=== PATIENT | male | born 1965 | race Caucasian/White ===

== ENCOUNTER 2016-11-04 08:59 | Day surgery (SDC) | payer OTHER ==
[2016-11-02 15:44] VITALS: BMI 33.0
[~2016-11-04 08:59] MED LIST: LACTATED RINGERS 1,000 ML IV SCH
[2016-11-04 09:15] VITALS: TEMP 97.8
[2016-11-04] MEDS ORDERED: LIDOCAINE 1% 20 ML VIAL (10MG/ML) FOR IV START INTRADERMA ONE (09:16)
[2016-11-04] MEDS ORDERED: LIDOCAINE 1% INJ 10MG/ML (20 ML MDV) ONE (10:33)
[2016-11-04] MEDS ORDERED: PROPOFOL 10 MG/ML 20 ML VIAL IV ONE (10:33)
--- NOTE | 2016-11-04 10:57 | P.GSHP ---
History of Present Illness H&P Date: 11/04/16 Chief Complaint: Screening colonoscopy Is a 51-year-old male referred from Dr. Alex Flores. Patient rents today for screening colonoscopy. He denies history of any GI complaints. - Constitutional Constitutional: Reports as per HPI Past Medical History Past Medical History: COPD, Eye Disorder, Hypertension Additional Past Medical History / Comment(s): CATARACT RT EYE. History of Any Multi-Drug Resistant Organisms: None Reported Past Surgical History: Orthopedic Surgery Additional Past Surgical History / Comment(s): EXC LT CATARACT. ORIF LT HIP REPAIR 1983, METAL REMOVED 1984. Past Anesthesia/Blood Transfusion Reactions: No Reported Reaction Smoking Status: Current every day smoker Past Alcohol Use History: Occasional Additional Past Alcohol Use History / Comment(s): SMOKES 1PPD, SINCE 1986. Past Drug Use History: Marijuana Additional Drug Use History / Comment(s): OCC USE - Past Family History Mother Family Medical History: No Reported History Medications and Allergies Home Medications Medication Instructions Recorded Confirmed Type Budesonide-Formot 160-4.5 Mcg 2 puff INHALATION BID PRN 11/02/16 11/04/16 History [Symbicort 160-4.5 Mcg Inhaler] Quinapril HCl [Accupril] 20 mg PO HS 11/02/16 11/04/16 History Allergies Allergy/AdvReac Type Severity Reaction Status Date / Time No Known Allergies Allergy Verified 11/02/16 15:22 Surgical - Exam Vital Signs Temp Pulse Resp BP Pulse Ox 97.8 F 74 16 148/99 98 11/04/16 09:14 11/04/16 09:14 11/04/16 09:14 11/04/16 09:14 11/04/16 09:14 - General well developed, no distress - Eyes PERRL - ENT normal pinna - Neck no masses - Respiratory normal expansion - Cardiovascular Rhythm: regular - Abdomen Abdomen: soft, non tender Assessment and Plan Plan: 51-year-old male. We'll perform screening colonoscopy.
--- NOTE | 2016-11-04 11:11 | P.OP ---
Date of Procedure: 11/04/16 Preoperative Diagnosis: Screen colonoscopy Postoperative Diagnosis: Montez rectal polyp at 25 cm Procedure(s) Performed: Colonoscopy Implants: Anesthesia: MAC Surgeon: Deshaun Cristobal Pathology: other (Rectal polyp) Condition: stable Disposition: PACU Indications for Procedure: Operative Findings: Description of Procedure: Patient's placed on the endoscopy table lateral position. He received IV sedation. Digital rectal exam was performed which revealed no abnormalities. The prostate was symmetric without nodules. The flexible colonoscope was then placed patient anus and passed throughout the entire colon. The ileocecal valve was visualized. The cecum, ascending and transverse colon appeared normal. The descending; normal. The scope was then brought back the rectum and there was a large peduncular polyp at 25 cm and this was removed with the snare. The major of the and rectum appeared normal. The scope was withdrawn for patient.
[2016-11-04 11:54] VITALS: BP 137/89; PULSE 67; RESP 16
== END 2016-11-04 12:04 | disposition home or self-care (01) ==
LOC: ORWHC2ENDO 08:59
PROVIDERS: ATTEND Surgery
DX: Z12.11 Encounter for screening for malignant neoplasm of colon (principal); D12.8 Benign neoplasm of rectum; I10 Essential (primary) hypertension; J44.9 Chronic obstructive pulmonary disease, unspecified; F12.90 Cannabis use, unspecified, uncomplicated; F17.200 Nicotine dependence, unspecified, uncomplicated; Z79.51 Long term (current) use of inhaled steroids; Z79.899 Other long term (current) drug therapy
CPT/HCPCS: 88305; 45385; J2001; J2704

== ENCOUNTER → 2018-07-05 | Outpatient (CLI) | payer OTHER ==
--- NOTE | 2018-07-05 13:19 | XR ---
EXAMINATION TYPE: XR pelvis AP view DATE OF EXAM: 07/05/2018 COMPARISON: None HISTORY: Pain TECHNIQUE: AP pelvis FINDINGS: Femoral heads articulate with the acetabulum. Degenerative changes are present greater on t he left. Some dysplasia may be present at the left hip. Sacroiliac joints are patent. Symphysis pubis is normal. Normal bowel gas is present. IMPRESSION: 1. Degenerative changes bilateral hips. 2. Some hip dysplasia and deformity of the femoral head may be present on the left.
--- NOTE | 2018-07-05 13:26 | XR ---
EXAMINATION TYPE: XR lumbar spine 2 or 3V DATE OF EXAM: 07/05/2018 COMPARISON: None HISTORY: Pain TECHNIQUE: Three-view lumbar spine FINDINGS: Spondylosis is present. Disc heights are preserved. Vertebral body heights are preserved. A lignment is preserved. There 5 lumbar-type vertebral bodies. The pedicles are intact. IMPRESSION: 1. Spondylosis. 2. No acute osseous abnormality.
== END | disposition home or self-care (01) ==
LOC: RADXRMAIN 12:27
PROVIDERS: ATTEND Family Medicine
DX: M47.816 Spondylosis without myelopathy or radiculopathy, lumbar region (principal); M16.0 Bilateral primary osteoarthritis of hip; Q65.89 Other specified congenital deformities of hip
CPT/HCPCS: 72100; 72170

== ENCOUNTER → 2020-06-03 | Outpatient (CLI) | payer OTHER ==
--- NOTE | 2020-06-03 12:21 | XR ---
EXAMINATION TYPE: XR thoracic spine 3 views DATE OF EXAM: 06/03/2020 COMPARISON: NONE HISTORY: 54-year-old male back pain FINDINGS: 12 rib-bearing thoracic vertebral bodies. All pedicles are visualized. Patient body habitus and some motion limits assessment of the lateral view. Patient's shoulders also limited assessment of the uppe r most thoracic vertebral bodies. Moderate to advanced spondylosis from C5 through C7 on the swimmer' s view. To the extent visualized, there is wbjf-gq-qnutmqsv degenerative disc disease lower thoracic spine. Vertebral body heights appear maintained. Alignment also appears preserved. IMPRESSION: Limitations due to body habitus and motion. No evident malalignment or vertebral compression collapse . Mild to moderate degenerative disc disease lower thoracic spine.
--- NOTE | 2020-06-03 12:22 | XR ---
EXAMINATION TYPE: XR lumbar spine 2 or 3V DATE OF EXAM: 06/03/2020 Comparison: 07/05/2018 Clinical History: 54-year-old male BACK PAIN Findings: 5 lumbar type vertebral bodies. Mild endplate spondylosis is present throughout. More mild to moderat e within the visualized lower thoracic spine. Vertebral bodies heights are preserved and alignment is maintained. Facet arthropathy lower lumbar spine. Impression: Mild degenerative disc disease and endplate spondylosis throughout. Facet arthropathy lower lumbar sp ine. No vertebral compression collapse or malalignment. Changes appear relatively similar to 9.
== END | disposition home or self-care (01) ==
LOC: RADXRMAIN 09:48
PROVIDERS: ATTEND Family Medicine
DX: M51.14 Intervertebral disc disorders with radiculopathy, thoracic region (principal); M51.16 Intervertebral disc disorders with radiculopathy, lumbar region; M47.26 Other spondylosis with radiculopathy, lumbar region
CPT/HCPCS: 72070; 72100

== ENCOUNTER → 2020-07-09 | Outpatient (CLI) | payer OTHER ==
--- NOTE | 2020-07-09 11:29 | CT ---
EXAMINATION TYPE: CT lumbar spine wo con DATE OF EXAM: 07/09/2020 11:01 AM COMPARISON: Lumbar spine x-ray June 03, 2020 HISTORY: low back pain CT DLP: 1072 mGycm Automated exposure control for dose reduction was used. Unenhanced CT of the lumbar spine was performed. Bone and soft tissue window settings are submitted as well as coronal and sagittal reconstructions. There are 5 lumbar type vertebra identified. Lumbar spine shows satisfactory alignment without eviden ce of acute fracture or dislocation. Vertebral body heights and disc space heights are fairly well-ma intained. Dkhu-xz-mmijibvl multilevel anterior spurring. Axial images show the T12-L1 and L1-L2 levels appear within normal limits. Axial images at L2-L3 level show pxvw-xr-nglziuec broad disc bulge and mild facet degenerative change s bilaterally. There is some effacement of the anterior thecal sac. Patent bilateral neural foramina. Axial images at the L3-L4 level show mild facet degenerative changes bilaterally. There is broad-base d posterior disc protrusion mildly effacing anterior thecal sac. Patent bilateral neural foramina. Axial images at the L4-L5 level show mild facet degenerative changes bilaterally. There is focal cent ral disc protrusion. Spinal canal is preserved. The bilateral neural foramina. Axial images at the L5-S1 level show broad disc bulge with focal right paracentral disc protrusion mi ldly effacing anterolateral thecal sac and uxre-oo-gulnrlrd facet degenerative changes bilaterally. T here is fairly moderate left and mild right-sided neural foraminal narrowing noted. Lobulated contour to both kidneys seen. Visualized liver is low dense suggesting fatty infiltration. Localizer shows partial visualization of metallic hardware from bilateral hip surgery. IMPRESSION: Aken-ed-nviakqov multilevel degenerative changes in the mid to lower lumbar spine as deta iled above
== END | disposition home or self-care (01) ==
LOC: RADCTMAIN 10:42
PROVIDERS: ATTEND Orthopaedic Surgery
DX: M47.816 Spondylosis without myelopathy or radiculopathy, lumbar region (principal); M47.817 Spondylosis without myelopathy or radiculopathy, lumbosacral region
CPT/HCPCS: 72131

== ENCOUNTER 2020-08-27 11:38 | Day surgery (SDC) | payer OTHER ==
[2020-08-26 12:30] VITALS: BMI 34.2
[2020-08-27 11:55] VITALS: TEMP 97.8
[2020-08-27] MEDS ORDERED: LIDOCAINE 1% (10MG/ML) FOR IV START INTRADERMA ONE (12:09)
[2020-08-27] MEDS ORDERED: LACTATED RINGERS 1,000 ML IV ONE (12:09)
[2020-08-27] MEDS ORDERED: methylPREDNISolone ACETATE 40 MG/ML 1 ML VIAL ONE (12:52)
[2020-08-27] MEDS ORDERED: ROPIVACAINE 5MG/ML 20ML VIAL ONE (12:52)
[2020-08-27] MEDS ORDERED: MIDAZOLAM 2 MG/2 ML VIAL ONE (12:52)
--- NOTE | 2020-08-27 13:15 | FL ---
Fluoroscopy History: SI Inj 4sec fluoro time. 1 image on PACS
[2020-08-27 13:23] VITALS: BP 111/76; PULSE 79; RESP 16
--- NOTE | 2020-08-27 13:41 | P.PCN ---
Date of Procedure: 08/27/20 Procedure(s) Performed: Procedure= Right sacroiliac joints steroid injection under fluoroscopy guidance (fluoroscopy image stored on file in the radiology Department ) Preoperative diagnosis= 1-sacroiliitis 2-lumbar facet arthropathy Postoperative diagnosis=Same as preop Diagnosis . Complication = none Condition= stable Anesthesia= moderate sedation with intravenous Versed 2 mg . Indication for the procedure= patient complaining of low back pain , examination was positive for severe tenderness over the sacroiliac joints , and patient diagnosed with sacroiliitis, for this reason he was good candidate for sacroiliac joint steroid injection. Description of the procedure= procedure risk and benefits discussed with the patient, including but not limited, risk of infection and bleeding, and ALLERGIC reaction to the medication and not complete pain relief and patient agreed with the preceding patient taken to the operating room, placed in prone position or standard monitors applied to the patient then after induction of anesthesia back prepped with chlorhexidine 3 times , Then under strict sterile technique, first I did the right sacroiliac joint the which was identified under fluoroscopy guidance been local infiltration of the skin and subcu interstitial with lidocaine 1% then 22-gauge Quincke Needle advanced slowly under fluoroscopy and placed in the right sacroiliac joint needle placement confirmed with AP and oblique and lateral view and after appropriate needle placement confirmed and after negative aspiration, or heme , then Ropivacaine 0.5% 4 mL, and 40 mg of Depo-Medrol mixed together and injected in the right sacroiliac joint after negative aspiration patient tolerated the procedure well without any complication.
== END 2020-08-27 13:35 | disposition home or self-care (01) ==
LOC: ORPAIN 11:38
PROVIDERS: ATTEND Specialist
DX: M46.1 Sacroiliitis, not elsewhere classified (principal); M47.896 Other spondylosis, lumbar region; M51.36 Other intervertebral disc degeneration, lumbar region
CPT/HCPCS: J2250; J1030; J2795; G0260; 27096

== ENCOUNTER 2020-10-20 06:55 | Day surgery (SDC) | payer OTHER ==
[2020-10-19 10:05] VITALS: BMI 34.5
[2020-10-20 07:22] VITALS: TEMP 97.4
[2020-10-20] MEDS ORDERED: TRIAMCINOLONE ACETONIDE 40 MG/ML 1 ML VIAL ONE (07:59)
[2020-10-20] MEDS ORDERED: ROPIVACAINE 5MG/ML 20ML VIAL ONE (07:59)
--- NOTE | 2020-10-20 08:04 | P.PCN ---
Date of Procedure: 10/20/20 Surgeon: Liat Florian Pathology: none sent Condition: stable Disposition: PACU Description of Procedure: Preoperative diagnoses= sacroiliac joint dysfunction and sacroiliitis on the ri ght side Postoperative diagnoses= same as preoperative diagnosis. Procedure= sacroiliac joint steroid injection under fluoroscopic guidance. Anesthesia= local only with with lidocaine 1% Estimated blood loss=minimal. Procedure indication= the patient had a history of severe chronic low back pain, diagnosed with sacroiliitis and lumbar sacral facet arthropathy unresponsive to conservative treatment. Procedure description= the patient was seen and identified in the preoperative holding area, risks and benefits and alternative of the procedure and possible complications discussed with the patient, patient signed the consent. an IV was started, and vital signs were monitored and were stable throughout the procedure, patient was placed in the prone position or table and the lumbosacral area was prepped and draped with a sterile fashion, vital signs were closely monitored during the procedure.The sacroiliac joint was identified on the AP view of fluoroscopy then the C-arm was tilted to the contralateral oblique position to superimpose the anterior and posterior joint lines on each other and to have a unified joint line with the target point at the inferior one third of this line. I used 22-gauge 3-1/2 inch Quincke spinal needle for this procedure and after getting into the sacroiliac joint I injected 40 mg of Kenalog +2 MLS of Ropivacaine 0.5%. Patient tolerated the procedure well without any complication, The patient returned to supine position after the back was cleaned and a Band- Aid applied, the patient transported to recovery room in stable condition and he was monitored for 30 minutes before she was discharged home in stable condition . patient will follow up with the pain clinic in a few weeks. A copy of the needle placement was saved to the C-arm machine.
[2020-10-20 08:26] VITALS: PULSE 70; RESP 20
[2020-10-20 08:35] VITALS: BP 125/81
--- NOTE | 2020-10-20 08:36 | FL ---
EXAMINATION TYPE: FL guided pain mgmt statistic DATE OF EXAM: 10/20/2020 CLINICAL HISTORY: Right sacroiliac joint pain. TECHNIQUE: Fluoroscopy. COMPARISON: None. FINDINGS: Fluoroscopic guidance was provided during pain relief procedure performed by Dr. Florian . A total of 2 seconds of fluoroscopic time was utilized during the procedure and 1 spot images are a cquired. Single image acquired shows needle localization inferior sacroiliac joint level . IMPRESSION: As Above.
== END 2020-10-20 08:37 | disposition home or self-care (01) ==
LOC: ORPAIN 06:55
PROVIDERS: ATTEND Anesthesiology
DX: G89.29 Other chronic pain (principal); M53.3 Sacrococcygeal disorders, not elsewhere classified; M46.1 Sacroiliitis, not elsewhere classified; I10 Essential (primary) hypertension; E66.9 Obesity, unspecified; Z68.34 Body mass index [BMI] 34.0-34.9, adult
CPT/HCPCS: J3301; J2795; G0260; 27096

== ENCOUNTER → 2020-11-25 | Outpatient (CLI) | payer OTHER ==
[2020-11-25 10:10] VITALS: BP 171/109; PULSE 77; RESP 16; TEMP 97.7
--- NOTE | 2020-11-25 10:26 | P.PAINCN ---
History of Present Illness - Reason for Consult Consult date: 11/25/20 - History of Present Illness This is a 55-year-old male that is referred by Dr. Gandara for right sacral iliac joint injections. His pain history includes pain in the low back with radiation to the right buttock. Pain does not go down the legs and is described as aching and stabbing. Overall the injections provided near 100% relief and is very happy with them. He is still having pain relief to this day. Patient also denies new-onset weakness, bowel/bladder incontinence, or any other signs or symptoms of cauda equina syndrome. There are no signs of acute intoxication, and no indications of medication diversion or overuse. In addition to above, 13-point review of systems is also negative for chest pain, shortness of breath, changes in vision, changes in hearing, new onset weakness, abdominal pain, diarrhea, extreme fatigue, malaise, fever, skin changes, homicidal or suicidal ideation, or bowel or bladder incontinence. Physical exam: Vital Signs: Reviewed in EMR GENERAL: Well appearing, in no acute distress PSYCH: Mood and affect is appropriate. Awake, alert, and oriented SKIN: Skin color, texture, turgor normal, no rashes or lesions HEENT: Normocephalic, atraumatic. EOM intact CV: No pedal edema RESP: Respirations are unlabored, no audible wheezing GI: Abdomen non-distended MUSCULOSKELETAL: Bilateral upper and lower extremity strength is normal and symmetric. No atrophy or tone abnormalities are noted. Neck: No pain to palpation over the cervical paraspinous muscles. Spurling negative, Axial Loading Test negative, Nina's sign negative. No pain with neck flexion, extension, or lateral flexion. No obvious deformity or signs of trauma. Normal cervical lordotic curve and normal cervical spine range of motion Lumbar spine: Straight leg raising in the sitting position is negative for radicular pain. No pain to palpation over the lumbar spine and paraspinous muscles. Negative for pain with facet loading and back extension/rotation. Normal range of motion without pain reproduction Buttocks: No pain to palpation over the PSIS, Yuval test is negative Extremities: Peripheral joint ROM is full and pain free without obvious instability or laxity in all four extremities. No edema or skin discolorations noted. Gait: Gait is normal NEUR: Bilateral upper and lower extremity coordination and muscle stretch reflexes are physiologic and symmetric. Negative clonus. No loss of sensation is noted. Cranial nerves are grossly intact. Assessment: 1. Right sacroiliitis 2. 3. Plan: -I told Patient he can follow-up as needed for repeat procedures as he had greater than 50% relief for several weeks with a significant increase in his functionality. I did discuss possible surgical intervention with Dr. Gandara if the patient would like to go that route, patient will see how he does over the next few weeks and months and make a decision then. At this time he would just like to repeat the procedures as needed. I spent 27 minutes on patient care today. The time was used to review medical records including relevant urine studies and prescription history (MAPs), review of the available imaging, evaluation and examination the patient, coordination of care at the medical staff and if applicable referring physicians, as well as creation of the medical record. Past Medical History Past Medical History: COPD, Eye Disorder, Hypertension, Musculoskeletal Disorder Additional Past Medical History / Comment(s): lumbar back pain History of Any Multi-Drug Resistant Organisms: None Reported Past Surgical History: Joint Replacement, Orthopedic Surgery Additional Past Surgical History / Comment(s): cataracts removed, ORIF LT HIP REPAIR 1983, METAL REMOVED 1984, bc hip replacements, colonoscopy Past Anesthesia/Blood Transfusion Reactions: No Reported Reaction Smoking Status: Current every day smoker - Past Family History Mother Family Medical History: No Reported History Medications and Allergies Home Medications Medication Instructions Recorded Confirmed Type Budesonide-Formot 160-4.5 Mcg 2 puff INHALATION BID PRN 11/02/16 11/23/20 History [Symbicort 160-4.5 Mcg Inhaler] Quinapril HCl [Accupril] 20 mg PO DAILY 11/02/16 11/23/20 History Allergies Allergy/AdvReac Type Severity Reaction Status Date / Time No Known Allergies Allergy Verified 11/23/20 14:28 Physical Exam Vitals: Vital Signs Temp Pulse Resp BP Pulse Ox 11/25/20 10:07 97.7 F 77 16 171/109 99 PQRS Measure Charge Sheet PQRS Narrative: Smoking Status Current every day smoker Blood Pressure 171/109 Pain Intensity [None] 2 Scale Used Numeric (1 - 10) Hx Alcohol Use (MH) Yes: occasional Home Medications: Ambulatory Orders Budesonide-Formot 160-4.5 Mcg [Symbicort 160-4.5 Mcg Inhaler] 2 puff INHALATION BID PRN 11/02/16 Quinapril HCl [Accupril] 20 mg PO DAILY 11/02/16
== END ==
LOC: PNWHC3 09:58
PROVIDERS: ATTEND Anesthesiology
DX: M46.1 Sacroiliitis, not elsewhere classified (principal); J44.9 Chronic obstructive pulmonary disease, unspecified; I10 Essential (primary) hypertension; F17.200 Nicotine dependence, unspecified, uncomplicated; Z79.51 Long term (current) use of inhaled steroids; Z79.899 Other long term (current) drug therapy
CPT/HCPCS: 99211

== ENCOUNTER → 2021-05-19 | Outpatient (CLI) | payer OTHER ==
[2021-05-19 11:22] VITALS: BP 145/90; PULSE 89; RESP 18; TEMP 98.2
--- NOTE | 2021-05-19 11:40 | P.PAINPG ---
Subjective Progress Note Date: 05/19/21 Principal diagnosis: Low back pain Mr. Garcia is a 55 -year-old pleasant male came to the [facility] pain clinic for follow-up visit . Patient has ongoing pain for many years. Patient had right-sided sacroiliac joint injection 2 which helped tremendous pain relief. He had more than 80% pain relief for more than 2 months duration from the previous injection. Patient describes pain is aching, throbbing, constant type of pain. Pain is not radiating below the right knee.. Patient rated pain levels are 4-5 out of 10 in severity. With the help of medications pain levels are 4 out of 10 in severity. Activities making pain worse. Medications, resting, interventional procedures, exercises helping in relieving patient's pain. Patient pain some days better than others. Overall activities decreased secondary to pain. Because of the pain sometimes patient is feeling lack of sleep, interest, and energy. Denied any side effects with the medications. Denied any bowel or bladder problems at this time. Patient is not using any walking aids. Patient denies any suicidal or homicidal ideations intent or plan. Patient denies any auditory or visual hallucinations. Patient denied any red flag symptoms related to pain. Objective - Vital Signs Vital signs: Intake & Output 05/18/21 05/19/21 05/19/21 18:59 06:59 18:59 Weight 117.934 kg - Exam General: Well-developed, well-nourished, no acute distress HEENT: Normocephalic, and atraumatic Neck: Supple, no neck swelling Psychiatric: Appropriate mood, and affect GUM MAKER: No focal neurological deficits Musculoskeletal: Upper extremity: Normal strength, and range of motion. Sensation grossly intact Lower extremity: Normal strength, and decreased range of motion secondary to pain Lumbar spine: Paravertebral tenderness: Negative Lumbar facet load test : Negative Sacroiliac joint tenderness: Positive more worse on the right side Thigh thrust test: Positive more worse on the right side SI joint compression test: Positive more worse on the right side Fabere test: Positive more on right side - Constitutional Constitutional Comment(s): 13 point review of Systems , and symptoms negative for chest pain, shortness of breath, change in vision, change in weakness, abdominal pain, diarrhea, extreme fatigue, malaise, fever, skin changes, suicidal/homicidal ideas, bowel incontinence or bladder incontinence. Assessment and Plan Assessment: Sacroiliac joint dysfunction right worse than the left Myofascial pain syndrome Plan: #1 Diagnoses, prognosis, and multiple treatment options including but not limited to physical therapy, interventional therapy, adjunct medication therapy, narcotic medication, and surgical options were discussed with the patient. And all questions were answered to the patient's satisfaction. #2 treatment plan agreement : Patient was thoroughly discussed regarding the treatment options, alternatives, and importance of exercises as tolerated. Patient clearly understood. #3 Patient was counseled on importance of regular exercise. Including ilana chi, aerobic exercises as tolerated. Which helps for chronic pain, and overall well- being. Patient also counseled regarding importance of weight control rolling chronic pain, and overall other health issues. By altering diet habits, minimizing sugar intake, and processed foods helps in minimizing Inflammation. Also discussed with the patient regarding intermittent fasting. Patient counseled regarding smoking associated with chronic pain, worsening inflammation, and smoking effects on liver, and medication metabolism. And encouraged to stop smoking. #4 investigations: MAPS- reviewed , urine drug test- reviewed #5 diagnostic tests: None #6 consultation : None # 7 interventional procedures: Right side SI joint injection . Procedure, complications, alternatives discussed with the patient. #8 medications none from the pain clinic # 9TENS unit's, and percussion massage device #10 disposition: scheduled to follow up with pain clinic in 4 weeks duration. Time with Patient: Less than 30 PQRS Measure Charge Sheet Measure #130: Documentation of Current Meds in Medical Chart: Patient's medica tions documented in chart Measure #226: Tobacco Use: Screen & Cessation Intervention: Pt screened for tobacco use AND intervention given Measure #111: Pneumonia Vaccination: Pneumococcal vaccine NOT administered or previously given Measure #47: Advance Care Plan: Advance care planning discussed & documented, pt chose/unable to give Measure #412: Opioid Treatment Agreement: No documentation of signed opioid treatment agreement Measure #408: Opioid Therapy Follow-up Evaluation: Patient had NO f/u eval minimum every 3 months during opioid therapy Measure #317: Preventitive Care & Scrn High Bld Press & F/U: Normal blood pressure, f/u not required Measure #128: Body Mass Index (BMI) Screening & Follow-up: BMI documented ABOVE normal parameters - f/u documented Measure #131: Pain Assessment & Follow-up: Pain positive & plan documented Measure #431: Unhealthy Alcohol Use Preventative Care & Scrn: Patient not identified as an unhealthy alcohol user PQRS Narrative: Smoking Status Current every day smoker Pain Intensity [Right Lower 7 Back] Hx Alcohol Use (MH) Yes: occasional Home Medications: Ambulatory Orders Budesonide-Formot 160-4.5 Mcg [Symbicort 160-4.5 Mcg Inhaler] 2 puff INHALATION BID PRN 11/02/16 Quinapril HCl [Accupril] 20 mg PO DAILY 11/02/16 Ibuprofen [Motrin] 800 mg PO DIRECTED PRN 05/18/21 Controlled Substance Measures - Controlled Substance Measures Is patient prescribed a controlled substance at discharge?: No
== END ==
LOC: PNWHC3 11:02
DX: M53.3 Sacrococcygeal disorders, not elsewhere classified (principal); M79.18 Myalgia, other site; F17.200 Nicotine dependence, unspecified, uncomplicated
CPT/HCPCS: 99211

== ENCOUNTER 2021-06-24 12:12 | Day surgery (SDC) | payer OTHER ==
[2021-06-18 14:27] VITALS: BMI 34.2
[2021-06-24 13:13] VITALS: TEMP 98.6
[2021-06-24] MEDS ORDERED: methylPREDNISolone ACETATE 40 MG/ML 1 ML VIAL ONE (13:37)
[2021-06-24] MEDS ORDERED: ROPIVACAINE 5MG/ML 20ML VIAL ONE (13:37)
--- NOTE | 2021-06-24 13:52 | P.PCN ---
Date of Procedure: 06/24/21 Procedure(s) Performed: Procedure(s) Performed: Procedure= Right sacroiliac joints steroid injection under fluoroscopy guidance (fluoroscopy image stored on file in the radiology Department ) Preoperative diagnosis= 1-right sacroiliitis 2-lumbar spondylosis with facet arthropathy Postoperative diagnosis=Same as preop Diagnosis . Complication = none Condition= stable Anesthesia= local anestesia with Ropivacaine 0.5% 3 ml . Indication for the procedure= patient complaining of low back pain , examination was positive for severe tenderness over the sacroiliac joints , and patient diagnosed with sacroiliitis, for this reason he was good candidate for sacroiliac joint steroid injection. Description of the procedure= procedure risk and benefits discussed with the patient, including but not limited, risk of infection and bleeding, and ALLERGIC reaction to the medication and not complete pain relief and patient agreed with the preceding patient taken to the operating room, placed in prone position or standard monitors applied to the patient then back prepped with chlorhexidine 3 times , Then under strict sterile technique, the right sacroiliac joint , was identified under fluoroscopy guidance been local infiltration of the skin and subcu interstitial with lidocaine 1% then 22-gauge Quincke Needle advanced slowly under fluoroscopy and placed in the right sacroiliac joint needle placement confirmed with AP and oblique and lateral view and after appropriate needle placement confirmed and after negative aspiration, or heme , then Ropivacaine 0.5% 4 mL, and 40 mg of Depo-Medrol mixed together and injected in the right sacroiliac joint after negative aspiration patient tolerated the procedure well without any complication.
--- NOTE | 2021-06-24 14:00 | FL ---
Fluoroscopy INDICATION: Pain FINDINGS: Fluoroscopy time: 7 seconds. Images obtained: 2. IMPRESSIONS: 1. Documentation of fluoroscopy.
[2021-06-24 14:09] VITALS: BP 125/709; PULSE 91; RESP 91
== END 2021-06-24 14:30 | disposition home or self-care (01) ==
LOC: ORPAIN 12:12
PROVIDERS: ATTEND Specialist
DX: M46.1 Sacroiliitis, not elsewhere classified (principal); M51.36 Other intervertebral disc degeneration, lumbar region; M43.06 Spondylolysis, lumbar region
CPT/HCPCS: G0260; J1030; J2795; 27096

== ENCOUNTER → 2021-08-16 | Outpatient (CLI) | payer OTHER ==
[2021-08-16 08:35] VITALS: BP 126/80; PULSE 80; RESP 18; TEMP 98.2
--- NOTE | 2021-08-16 08:43 | P.PN ---
Subjective Progress Note Date: 08/16/21 Principal diagnosis: A 56 yr old male with a history of severe and chronic low back pain secondary to lumbar degenerative disc diseases and lumbar spondylosis with facet arthropathy presents today for evaluation status post right SI joint injection. Patient states he experienced 80% pain relief for several weeks status post procedure. Pain level is currently at 8 out of 10 in intensity, dull achy in the lower aspects of the lumbar spine with radiation to the back of the right hip and buttock. Pain escalates as high as 10 out of 10 with certain activities. Pain is provoked by bending and crouching when he is doing a home repairs such as adjusting the garbage disposal and shutting off the water valve to the toilet, walking for periods of 20 minutes or more or standing for periods of 40 minutes or. Pain is alleviated with medications, injections, heat, use of a heat ing pad, stretching paced activities at home, repositioning, reclining and rest. Interventional pain procedures completed include right SI joint injection #1 Patient is currently on Motrin 800 mg Patient denies any side effects of the medication(s), denies excessive drowsiness or sleepiness, denies suicidal ideation and reports that the current pain medication is helping to control the pain and improve activities of daily living. Patient denies any motor or sensory deficits. Patient denies any fever or night sweats, denies any change in the bowel movements or urination. Physical Examination: -Constitutional: Cooperative. Not in acute distress . -HEENT: Neck is supple. No lymphadenopathy. No thyromegaly. Normal thyroid size. Eyes: No ptosis , no icterus, no photophobia. ENT: No auditory deficits. Normal oropharynx. No Thrush. - Respiratory: Chest clear to auscultations bilaterally. No wheezing. No rhonchi. - Cardiovascular: Regular rate and rhythm. S1 / S2 , no S3 , no S4. - Gastrointestinal: Abdomen soft no tenderness. Bowel sounds positive in all four quadrants. No organomegaly. - Genitourinary: Deferred. - Neurologic: Cranial nerve II to XII intact. No focal neurological deficits. - Psychatric: Alert & oriented x 3. Matching mood & appropriate affect. Judgment and insight intact. - Lymphatic: No Lymphadenopathy. - Musculoskeletal: Cervical spine: Muscle bulk/ tone/ strength in the bilateral upper extremities normal. Facet loading test cervical area positive. Lumbar spine: Motor bulk/ tone/ strength lower extremities , thigh and legs : 5/5 Deep tendon reflexes : Normal Knee Jerk. Normal Ankle Jerk . Vertebral body tenderness to palpation over Lumbar Facet Loading Test positive Straight Leg Raise: positive at 30 degrees right side/ left side Gaenslen's Test positive Sacral spine : Severe tenderness over the Sacroiliac joint: right side / left side Range of motion: Flexion of the lumbar spine <60 degrees Range of motion: Extension of the lumbar spine <20 degrees Gaenslen's Test positive Yuval test: positive right side / left side Assessment and plan: Chronic low back pain secondary to lumbar degenerative disc disease , lumbar spondylosis with facet arthropathy without myelopathy Recommendation of right SI joint injection #2. Risks, benefits of procedure discussed and patient verbalized understanding. Denies anticoagulants use. Denies medical history of diabetes mellitus. Chronic and current use of high-risk medication (Opioids). The patient was counseled about risk of opioid use, psychological risk associated with opioids and was orally counseled to not overuse , divert or sell medications. Pt is to store medication in a safe location. The patient is counseled against driving while using narcotic medications and also not to use alcohol or any illicit recreational drugs. Patient verbalized understanding that the lack of compliance will result in failure to renew narcotic prescription(s) as well as possible discharge from the clinic Diagnoses, prognosis and treatment options including but not limited to physical therapy, surgical interventions, interventional therapies and medication management including narcotics and adjuvant medication were discussed. All patient questions answered MAPS reviewed and it was appropriate. UDS to be collected at next visit. Prescription for [place] 5/325 #45 with 1 refill. I have spent 31 minutes on patient care today. Dr Hall was available by phone for the evaluation of this patient. The time was used to review the medical records including relevant urine studies and Prescription history (MAPs), review of the available imaging, evaluation and examination of the patient, coordination of care with the medical staff and if applicable referring physicians, as well as creation of the medical record Objective - Vital Signs Vital signs: Vital Signs Temp 98.2 F 08/16/21 08:30 Pulse 80 08/16/21 08:30 Resp 18 08/16/21 08:30 BP 126/80 08/16/21 08:30 Pulse Ox 95 08/16/21 08:30 Intake & Output 08/15/21 08/16/21 08/16/21 18:59 06:59 18:59 Weight 117.934 kg PQRS Measure Charge Sheet Mode of Arrival: Ambulatory - Pain Location Right Lower Back Non-Pharmacological Interventions: Heat, Home Exercise, Position/Reposition, Stretching Pharmacological Interventions: PRN Medication PQRS Narrative: Smoking Status Current every day smoker Narcotic Agreement Date Signed 08/16/21 Blood Pressure 126/80 Pain Intensity [Right Lower 8 Back] Scale Used Numeric (1 - 10) Hx Alcohol Use (MH) Yes: occasional Home Medications: Ambulatory Orders Budesonide-Formot 160-4.5 Mcg [Symbicort 160-4.5 Mcg Inhaler] 2 puff INHALATION BID PRN 11/02/16 Quinapril HCl [Accupril] 20 mg PO DAILY 11/02/16 Ibuprofen [Motrin] 800 mg PO DIRECTED PRN 05/18/21 HYDROcodone/APAP 5-325MG [[place] 5-325] 1 tab PO Q12HR PRN 30 Days #45 tab 08/16/21 HYDROcodone/APAP 5-325MG [[place] 5-325] 1 tab PO Q12HR PRN 30 Days #45 tab 08/16/21
== END ==
LOC: PNWHC3 08:12
PROVIDERS: ATTEND Physician Assistant Medical
DX: M51.36 Other intervertebral disc degeneration, lumbar region (principal); M47.816 Spondylosis without myelopathy or radiculopathy, lumbar region; G89.29 Other chronic pain; Z79.891 Long term (current) use of opiate analgesic; F17.200 Nicotine dependence, unspecified, uncomplicated
CPT/HCPCS: 99211

== ENCOUNTER → 2021-10-11 | Outpatient (CLI) | payer OTHER ==
--- NOTE | 2021-10-11 08:54 | P.PN ---
Subjective Progress Note Date: 10/11/21 Principal diagnosis: A 56 yr old male with a history of severe and chronic low back pain secondary to lumbar degenerative disc diseases and lumbar spondylosis with facet arthropathy presents today for medication refills. He is also approved and pending scheduling a right SI joint injection. Pain level is a 3 out of 10 in intensity, constant, achy in the lower aspects of his lumbar spine/tailbone region with pain provoked with bending and standing. Pain is alleviated with medications ([place] 5/325 mg), heat and laying supine. Patient is currently on [place] 5/325 #45 Patient denies any side effects of the medication(s), denies excessive drowsiness or sleepiness, denies suicidal ideation and reports that the current pain medication is helping to control the pain and improve activities of daily living. Patient denies any motor or sensory deficits. Patient denies any fever or night sweats, denies any change in the bowel movements or urination. Physical Examination: -Constitutional: Cooperative. Not in acute distress . -HEENT: Neck is supple. No lymphadenopathy. No thyromegaly. Normal thyroid size. Eyes: No ptosis , no icterus, no photophobia. ENT: No auditory deficits. Normal oropharynx. No Thrush. - Respiratory: Chest clear to auscultations bilaterally. No wheezing. No rhonchi. - Cardiovascular: Regular rate and rhythm. S1 / S2 , no S3 , no S4. - Gastrointestinal: Abdomen soft no tenderness. Bowel sounds positive in all four quadrants. No organomegaly. - Genitourinary: Deferred. - Neurologic: Cranial nerve II to XII intact. No focal neurological deficits. - Psychatric: Alert & oriented x 3. Matching mood & appropriate affect. Judgment and insight intact. - Lymphatic: No Lymphadenopathy. - Musculoskeletal: Cervical spine: Muscle bulk/ tone/ strength in the bilateral upper extremities normal. Facet loading test cervical area positive. Lumbar spine: Motor bulk/ tone/ strength lower extremities , thigh and legs : 5/5 Deep tendon reflexes : Normal Knee Jerk. Normal Ankle Jerk . Vertebral body tenderness to palpation over Lumbar Facet Loading Test positive Straight Leg Raise: positive at 30 degrees right side/ left side Gaenslen's Test positive Sacral spine : Severe tenderness over the Sacroiliac joint: right side / left side Range of motion: Flexion of the lumbar spine <60 degrees Range of motion: Extension of the lumbar spine <20 degrees Gaenslen's Test positive Yuval test: positive right side / left side Assessment and plan: Chronic low back pain secondary to lumbar degenerative disc disease , lumbar spondylosis with facet arthropathy without myelopathy Recommendation of right SI joint injection. Risks, benefits of procedure discussed in patient accounts understanding. Denies anticoagulant use or medical history of diabetes. Chronic and current use of high-risk medication (Opioids). The patient was counseled about risk of opioid use, psychological risk associated with opioids and was orally counseled to not overuse , divert or sell medications. Pt is to store medication in a safe location. The patient is counseled against driving while using narcotic medications and also not to use alcohol or any illicit recreational drugs. Patient verbalized understanding that the lack of compliance will result in failure to renew narcotic prescription(s) as well as possible discharge from the clinic Diagnoses, prognosis and treatment options including but not limited to physical therapy, surgical interventions, interventional therapies and medication management including narcotics and adjuvant medication were discussed. All patient questions answered MAPS reviewed and it was appropriate. Will collect UDS at next visit in December, Prescription refill for [place] 5/325mg #45 w 1 refill I have spent 31 minutes on patient care today. Dr Hall was available by phone for the evaluation of this patient. The time was used to review the medical records including relevant urine studies and Prescription history (MAPs), review of the available imaging, evaluation and examination of the patient, coordination of care with the medical staff and if applicable referring physicians, as well as creation of the medical record Objective - Vital Signs Vital signs: Intake & Output 10/10/21 10/11/21 10/11/21 18:59 06:59 18:59 Weight 124.738 kg PQRS Measure Charge Sheet Mode of Arrival: Ambulatory - Pain Location Lower Back Non-Pharmacological Interventions: Heat, Position/Reposition Pharmacological Interventions: Medication PQRS Narrative: Smoking Status Current every day smoker Narcotic Agreement Date Signed 08/16/21 Pain Intensity [Lower Back] 7 Scale Used Numeric (1 - 10) Hx Alcohol Use (MH) Yes: occasional Home Medications: Ambulatory Orders Budesonide-Formot 160-4.5 Mcg [Symbicort 160-4.5 Mcg Inhaler] 2 puff INHALATION BID PRN 11/02/16 Quinapril HCl [Accupril] 20 mg PO DAILY 11/02/16 Ibuprofen [Motrin] 800 mg PO DIRECTED PRN 05/18/21 HYDROcodone/APAP 5-325MG [[place] 5-325] 1 tab PO Q12HR PRN 30 Days #45 tab 10/11/21 HYDROcodone/APAP 5-325MG [[place] 5-325] 1 tab PO Q12HR PRN 30 Days #45 tab 10/11/21
[2021-10-11 09:03] VITALS: BP 151/93; PULSE 85; RESP 16; TEMP 97.8
== END ==
LOC: PNWHC3 08:17
PROVIDERS: ATTEND Specialist
DX: M51.36 Other intervertebral disc degeneration, lumbar region (principal); M47.816 Spondylosis without myelopathy or radiculopathy, lumbar region; G89.29 Other chronic pain; Z79.891 Long term (current) use of opiate analgesic; F17.200 Nicotine dependence, unspecified, uncomplicated
CPT/HCPCS: 99211

== ENCOUNTER 2021-10-26 10:48 | Day surgery (SDC) | payer OTHER ==
[2021-10-25 09:42] VITALS: BMI 36.3
[2021-10-26 11:38] VITALS: TEMP 98
[2021-10-26] MEDS ORDERED: ROPIVACAINE 5MG/ML 20ML VIAL ONE (12:00)
[2021-10-26] MEDS ORDERED: IOPAMIDOL M200 10 ML VIAL ONE (12:00)
--- NOTE | 2021-10-26 12:18 | P.PCN ---
Date of Procedure: 10/26/21 Description of Procedure: Procedure: Sacroiliac joint injection right Preoperative diagnosis: Sacroiliitis Postoperative diagnosis: Sacroiliitis Imaging: Fluoroscopy was used, images where saved to the medical record Complications: none Anesthesia: 1% lidocaine 5cc Description of the procedure: procedure risk and benefits discussed with the patient, including but not limited, risk of infection and bleeding, and allergic reaction to the medication and incomplete pain relief. Patient agreed and signed consent. Patient was taken to the room and placed in a prone position. Chlorhexidine was used to cleanse the skin. Under sterile conditions patient skin was anesthetized 1% lidocaine. Subcutaneous tissues were also anesthetized with a total 5 mL of 1% lidocaine. After that, a 22-gauge spinal needle was advanced through the anesthetized location under fluoroscopic guidance. Needle was advanced into the inferior portion of the sacroiliac joint. IV contrast was used to confirm spread within the joint. After adequate spread was achieved, 2.5 ML's of 0.5% ropivacaine with 40 mg of depomedrol was injected into the joint (steroid split between both sides if bilateral). Patient tolerated the procedure well. Sent to the recovery room in stable condition. Patient will follow up as directed.
[2021-10-26 12:19] VITALS: RESP 20
[2021-10-26 12:32] VITALS: BP 114/73; PULSE 84
--- NOTE | 2021-10-26 14:01 | FL ---
EXAMINATION TYPE: FL guided pain mgmt statistic DATE OF EXAM: 10/26/2021 CLINICAL HISTORY: Right sacroiliac joint pain. TECHNIQUE: Fluoroscopy. COMPARISON: None. FINDINGS: Fluoroscopic guidance was provided during pain relief procedure performed by Dr. Boyce . A total of 4 seconds of fluoroscopic time was utilized during the procedure and 1 spot images are a cquired. Single limits acquired shows needle localization at inferior right sacroiliac joint level. IMPRESSION: As Above.
== END 2021-10-26 12:33 ==
LOC: ORPAIN 10:48
PROVIDERS: ATTEND Hospitalist
DX: M46.1 Sacroiliitis, not elsewhere classified (principal)
CPT/HCPCS: 27096; Q9966; J2795; G0260

== ENCOUNTER 2022-05-21 14:11 | Emergency (ER) | payer OTHER ==
[2022-05-21 14:24] VITALS: TEMP 97.7
[2022-05-21] MEDS ORDERED: AMPICILLIN-SULBACTAM 3 GM in SODIUM CHLORIDE 0.9% 100 ML IVPB STA (15:11)
[2022-05-21] MEDS ORDERED: MORPHINE SULFATE 4 MG/ML SYRINGE IVP STA (15:12)
[2022-05-21 16:13] LABS: Basophils # (A) 0.1 k/uL (0-0.2); Basophils % (A) 1 %; Eosinophils # (A) 0.2 k/uL (0-0.7); Eosinophils % (A) 1 %; HCT 48.9 % (39.0-53.0); HGB 16.5 gm/dL (13.0-17.5); Lymphocytes # (A) 1.9 k/uL (1.0-4.8); Lymphocytes % (A) 13 %; MCH 31.8 pg (25.0-35.0); MCHC 33.6 g/dL (31.0-37.0); MCV 94.7 fL (80.0-100.0); Monocytes # (A) 0.8 k/uL (0-1.0); Monocytes % (A) 5 %; Neutrophils # (A) 11.7 k/uL (1.3-7.7); Neutrophils % (A) 79 %; Platelet Count 293 k/uL (150-450); RBC 5.17 m/uL (4.30-5.90); RDW 12.1 % (11.5-15.5); WBC 14.8 k/uL (3.8-10.6)
--- NOTE | 2022-05-21 16:13 | ED ---
Animal Bite HPI - General Source: patient Mode of arrival: ambulatory Limitations: no limitations <Ulysses Guardado - Last Filed: 05/21/22 17:27> <Gus Becker - Last Filed: 05/21/22 17:41> - General Chief Complaint: Animal Bite Stated Complaint: cat bite - rt hand Time Seen by Provider: 05/21/22 15:01 - History of Present Illness Initial Comments: Patient is a 56-year-old male history of COPD and hypertension presenting with chief complaint of right hand pain and swelling. Patient was petting a cat in his neighborhood yesterday when it bit him. Patient states that pain has been increasing over the last 24 hours. The cat bit him on the wrist, there is redness and swelling localized to the area as well as distal to the area. No fever or chills. No nausea or vomiting. No chest pain or difficulty breathing. No palpitations or weakness. No numbness, tingling, weakness. (Ulysses Guardado) - Related Data Home Medications Medication Instructions Recorded Confirmed Budesonide-Formot 160-4.5 Mcg 2 puff INHALATION BID PRN 11/02/16 10/25/21 [Symbicort 160-4.5 Mcg Inhaler] Ibuprofen [Motrin] 800 mg PO DIRECTED PRN 05/18/21 10/25/21 Benazepril HCl 1 tab PO DAILY 10/11/21 10/25/21 Previous Rx's Medication Instructions Recorded HYDROcodone/APAP 5-325MG [[place] 1 tab PO Q12HR PRN 30 Days #45 tab 10/11/21 5-325] Amoxic-Pot Clav 875-125Mg 1 tab PO Q12HR 1 Days #14 tab 05/21/22 [Augmentin 875-125] HYDROcodone/APAP 5-325MG [[place] 1 tab PO Q4HR PRN 3 Days #18 tab 05/21/22 5-325] Allergies Allergy/AdvReac Type Severity Reaction Status Date / Time No Known Allergies Allergy Verified 05/21/22 14:24 Review of Systems ROS Other: All systems not noted in ROS Statement are negative. <Ulysses Guardado - Last Filed: 05/21/22 17:27> ROS Other: All systems not noted in ROS Statement are negative. <Gus Becker - Last Filed: 05/21/22 17:41> ROS Statement: Those systems with pertinent positive or pertinent negative responses have been documented in the HPI. Past Medical History Past Medical History: COPD, Eye Disorder, Hypertension, Musculoskeletal Disorder Additional Past Medical History / Comment(s): lumbar back pain History of Any Multi-Drug Resistant Organisms: None Reported Past Surgical History: Joint Replacement, Orthopedic Surgery Additional Past Surgical History / Comment(s): cataracts removed, ORIF LT HIP REPAIR 1983, METAL REMOVED 1984, bc hip replacements, colonoscopy, PAIN CLINIC PROCEDURES Past Anesthesia/Blood Transfusion Reactions: No Reported Reaction Past Psychological History: No Psychological Hx Reported Smoking Status: Current every day smoker Past Alcohol Use History: Occasional Past Drug Use History: Marijuana - Past Family History Mother Family Medical History: No Reported History <Ulysses Guardado - Last Filed: 05/21/22 17:27> General Exam Limitations: no limitations General appearance: alert, in no apparent distress Head exam: Present: atraumatic, normocephalic, normal inspection Eye exam: Present: normal appearance Neck exam: Present: normal inspection Respiratory exam: Present: normal lung sounds bilaterally. Absent: respiratory distress, wheezes, rales, rhonchi, stridor Cardiovascular Exam: Present: regular rate, normal rhythm, normal heart sounds. Absent: systolic murmur, diastolic murmur, rubs, gallop, clicks Extremities exam: Present: tenderness. Absent: full ROM Right Forearm Wrist exam: Present: tenderness, swelling, erythema. Absent: full ROM Vascular: Present: radial pulse (2+). Absent: vascular compromise Neurological exam: Present: alert, oriented X3, CN II-XII intact Psychiatric exam: Present: normal affect, normal mood Skin exam: Present: erythema (over cat bite on R wrist) <Ulysses Guardado - Last Filed: 05/21/22 17:27> Course <Ulysses Guardado - Last Filed: 05/21/22 17:27> Vital Signs 05/21/22 14:20 Temperature 97.7 F Pulse Rate 73 Respiratory 16 Rate Blood Pressure 139/85 O2 Sat by Pulse 97 Oximetry - Reevaluation(s) Reevaluation #1: Patient was signed out to my attending Dr. Becker for further management and disposition 05/21/22 17:27 (Ulysses Guardado) Medical Decision Making - Lab Data Result diagrams: 05/21/22 15:50 05/21/22 15:50 <Ulysses Guardado - Last Filed: 05/21/22 17:27> - Lab Data Result diagrams: 05/21/22 15:50 05/21/22 15:50 <Gus Becker - Last Filed: 05/21/22 17:41> - Medical Decision Making Patient is a 56-year-old male presenting with chief complaint of cat bite to the right wrist and hand. On physical examination there is exquisite tenderness and some swelling and redness noted. Patient has full sensation and radial pulses 2+. WBC 14.8. CRP 1.9. X-ray of the wrist and hand show soft tissue swelling without acute osseous process. Patient is given Unasyn and pain medication. (Ulysses Guardado) - Lab Data Lab Results 05/21/22 05/21/22 05/21/22 Range/Units 15:50 15:50 15:50 WBC 14.8 H (3.8-10.6) k/uL RBC 5.17 (4.30-5.90) m/uL Hgb 16.5 (13.0-17.5) gm/dL Hct 48.9 (39.0-53.0) % MCV 94.7 (80.0-100.0) fL MCH 31.8 (25.0-35.0) pg MCHC 33.6 (31.0-37.0) g/dL RDW 12.1 (11.5-15.5) % Plt Count 293 (150-450) k/uL MPV 8.0 Neutrophils % 79 % Lymphocytes % 13 % Monocytes % 5 % Eosinophils % 1 % Basophils % 1 % Neutrophils # 11.7 H (1.3-7.7) k/uL Lymphocytes # 1.9 (1.0-4.8) k/uL Monocytes # 0.8 (0-1.0) k/uL Eosinophils # 0.2 (0-0.7) k/uL Basophils # 0.1 (0-0.2) k/uL Sodium 134 L (137-145) mmol/L Potassium 4.5 (3.5-5.1) mmol/L Chloride 100 (98-107) mmol/L Carbon Dioxide 25 (22-30) mmol/L Anion Gap 9 mmol/L BUN 15 (9-20) mg/dL Creatinine 0.73 (0.66-1.25) mg/dL Est GFR (CKD-EPI)AfAm >90 (>60 ml/min/1.73 sqM) Est GFR (CKD-EPI)NonAf >90 (>60 ml/min/1.73 sqM) Glucose 102 H (74-99) mg/dL Plasma Lactic Acid Marlon 1.3 (0.7-2.0) mmol/L Calcium 9.3 (8.4-10.2) mg/dL Total Bilirubin 0.7 (0.2-1.3) mg/dL AST 28 (17-59) U/L ALT 44 (4-49) U/L Alkaline Phosphatase 95 (38-126) U/L C-Reactive Protein 1.9 H (<1.0) mg/dL Total Protein 8.0 (6.3-8.2) g/dL Albumin 4.8 (3.5-5.0) g/dL Disposition <Ulysses Guardado - Last Filed: 05/21/22 17:27> Is patient prescribed a controlled substance at d/c from ED?: Yes When asked, does pt state using other controlled substances?: No If prescribed controlled substance>3 days was MAPS reviewed?: Prescribed <3 Days If opioid is for acute pain is fill amount 7 days or less?: Yes If Rx opioid, was Start Talking consent form obtained?: Yes <Gus Becker - Last Filed: 05/21/22 17:41> Clinical Impression: Cat bite Disposition: HOME SELF-CARE Condition: Good Instructions (If sedation given, give patient instructions): Animal Bite (ED) Prescriptions: Amoxic-Pot Clav 875-125Mg [Augmentin 875-125] 1 tab PO Q12HR 1 Days #14 tab HYDROcodone/APAP 5-325MG [[place] 5-325] 1 tab PO Q4HR PRN 3 Days #18 tab PRN Reason: Pain Referrals: Alex Zimmer DO [Primary Care Provider] - 1-2 days
[2022-05-21] MEDS ORDERED: KETOROLAC 15 MG/ML 1 ML VIAL IVP STA (16:33)
[2022-05-21 16:38] LABS: ALT 44 U/L (4-49); AST 28 U/L (17-59); African American GFR (CKD) >90 (>60 ml/min/1.73 sqM); Albumin 4.8 g/dL (3.5-5.0); Alkaline Phosphatase 95 U/L (38-126); Anion Gap 9 mmol/L; Blood Urea Nitrogen 15 mg/dL (9-20); C Reactive Protein 1.9 mg/dL (<1.0); Calcium 9.3 mg/dL (8.4-10.2); Carbon Dioxide 25 mmol/L (22-30); Chloride 100 mmol/L (98-107); Glucose 102 mg/dL (74-99); Non-African American GFR(CKD) >90 (>60 ml/min/1.73 sqM); Potassium 4.5 mmol/L (3.5-5.1); Sodium 134 mmol/L (137-145); Total Bilirubin 0.7 mg/dL (0.2-1.3)
--- NOTE | 2022-05-21 16:44 | XR ---
EXAMINATION TYPE: XR hand complete RT, XR wrist complete RT DATE OF EXAM: 05/21/2022 4:21 PM INDICATION: Patient age:Male; 56 years old; Reason for study: cat bite, redness/swelling; COMPARISON: None TECHNIQUE: Frontal, lateral and oblique views of the right wrist and hand were obtained. FINDINGS: Normal alignment of the visualized joints. No acute osseous pathology is identified. No radiopaque foreign body or soft tissue swelling. IMPRESSION: 1. No acute osseous pathology. 2. Soft tissue swelling without evidence of radiopaque foreign body.
[2022-05-21] MEDS ORDERED: HYDROmorphone 1 MG/ML 1 ML SYRINGE IVP STA (16:54)
[2022-05-21 17:40] LABS: Erythrocyte Sedimentation Rate 4 mm/hr (0-15)
[2022-05-21 17:54] VITALS: BP 140/76; PULSE 84; RESP 18
[2022-05-21] MEDS ORDERED: ACET/COD 300 MG/30 MG STARTER PACK 6 TAB BTL PO STA (17:57)
== END 2022-05-21 18:16 | disposition home or self-care (01) ==
LOC: EC 14:11
DX: S61.451A Open bite of right hand, initial encounter (principal); I10 Essential (primary) hypertension; J44.9 Chronic obstructive pulmonary disease, unspecified; F17.200 Nicotine dependence, unspecified, uncomplicated; F12.90 Cannabis use, unspecified, uncomplicated; Z79.899 Other long term (current) drug therapy; W55.01XA Bitten by cat, initial encounter
CPT/HCPCS: 36415; 80053; 85652; 83605; 85025; 86140; 87040; 73110; 73130; 99284; 96374; 96375 ×2; J2270; J1170; J0295; J1885

== ENCOUNTER 2022-05-22 13:59 | Inpatient (IN) | payer OTHER ==
[2022-05-22] MEDS ORDERED: SODIUM CHLORIDE 0.9% 1,000 ML IV ONE (14:44)
[2022-05-22] MEDS ORDERED: KETOROLAC 15 MG/ML 1 ML VIAL IVP STA (14:44)
[2022-05-22] MEDS ORDERED: AMPICILLIN-SULBACTAM 3 GM in SODIUM CHLORIDE 0.9% 100 ML IVPB STA (14:44)
[2022-05-22] MEDS ORDERED: HYDROmorphone 1 MG/ML 1 ML SYRINGE IVP STA (14:44)
--- NOTE | 2022-05-22 14:59 | ED ---
General Adult HPI - General Chief complaint: Recheck/Abnormal Lab/Rx Stated complaint: R wrist pain-recheck Time Seen by Provider: 05/22/22 14:40 Source: EMS Mode of arrival: EMS Limitations: no limitations - History of Present Illness Initial comments: Patient is a 56-year-old male presenting for reevaluation of cat bite. Patient was seen in the ER yesterday by myself, patient was signed out to Dr. Becker who discharged the patient home on Augmentin. Patient states that today pain, redness, and swelling to the right hand and wrist has worsened. Patient is in tears while obtaining the history. No numbness or tingling. No fever or chills. No nausea or vomiting. No headache, vision or hearing changes, neck pain or stiffness. No chest pain or difficulty breathing. - Related Data Home Medications Medication Instructions Recorded Confirmed Benazepril HCl 20 mg PO DAILY 10/11/21 05/22/22 Fluticasone/Umeclidin/Vilanter 1 puff INHALATION RT-DAILY 05/22/22 05/22/22 [Trelegy Ellipta 100-62.5-25] Previous Rx's Medication Instructions Recorded Amoxic-Pot Clav 875-125Mg 1 tab PO Q12HR 7 Days #14 tab 05/22/22 [Augmentin 875-125] HYDROcodone/APAP 5-325MG [[place] 1 tab PO Q4HR PRN 3 Days #18 tab 05/22/22 5-325] Allergies Allergy/AdvReac Type Severity Reaction Status Date / Time No Known Allergies Allergy Verified 05/22/22 18:26 Review of Systems ROS Statement: Those systems with pertinent positive or pertinent negative responses have been documented in the HPI. ROS Other: All systems not noted in ROS Statement are negative. Past Medical History Past Medical History: COPD, Eye Disorder, Hypertension, Musculoskeletal Disorder Additional Past Medical History / Comment(s): lumbar back pain History of Any Multi-Drug Resistant Organisms: None Reported Past Surgical History: Joint Replacement, Orthopedic Surgery Additional Past Surgical History / Comment(s): cataracts removed, ORIF LT HIP REPAIR 1983, METAL REMOVED 1984, bc hip replacements, colonoscopy, PAIN CLINIC PROCEDURES Past Anesthesia/Blood Transfusion Reactions: No Reported Reaction Past Psychological History: No Psychological Hx Reported Smoking Status: Current every day smoker Past Alcohol Use History: Occasional Past Drug Use History: Marijuana - Past Family History Mother Family Medical History: No Reported History General Exam Limitations: no limitations General appearance: alert, in no apparent distress Head exam: Present: atraumatic, normocephalic, normal inspection Eye exam: Present: normal appearance Neck exam: Present: normal inspection Respiratory exam: Present: normal lung sounds bilaterally. Absent: respiratory distress, wheezes, rales, rhonchi, stridor Cardiovascular Exam: Present: regular rate, normal rhythm, normal heart sounds. Absent: systolic murmur, diastolic murmur, rubs, gallop, clicks Right Hand Wrist exam: Present: tenderness, swelling, erythema. Absent: normal inspection, full ROM Vascular: Present: radial pulse (2+) Neurological exam: Present: alert, oriented X3, CN II-XII intact Psychiatric exam: Present: normal affect, normal mood Skin exam: Present: erythema (Right hand and wrist) Course Vital Signs 05/22/22 14:04 Temperature 97.9 F Pulse Rate 82 Respiratory 18 Rate Blood Pressure 151/92 O2 Sat by Pulse 98 Oximetry Medical Decision Making - Medical Decision Making Patient is a 56-year-old male presenting for repeat evaluation of It to the right wrist. Patient was seen and evaluated here yesterday, was motivated to go home and was discharged on Augmentin. States that today redness, swelling, tenderness worsened. Physical examination there is limited range of motion secondary to pain, erythema surrounding the right wrist and hand and tenderness to palpation. Neurovascularly intact. WBC 13.2. Patient is started on Unasyn and given pain medication. He'll be admitted for cat bite cellulitis. I spoke with Henrietta Reinoso from [facility] who accepted admission. Patient is agreeable with this plan. I discussed this case with my attending Dr. Lemons - Lab Data Result diagrams: 05/22/22 15:39 05/22/22 15:39 Lab Results 05/22/22 05/22/22 05/22/22 Range/Units 15:39 15:39 15:39 WBC 13.2 H (3.8-10.6) k/uL RBC 4.88 (4.30-5.90) m/uL Hgb 16.0 (13.0-17.5) gm/dL Hct 47.0 (39.0-53.0) % MCV 96.3 (80.0-100.0) fL MCH 32.8 (25.0-35.0) pg MCHC 34.0 (31.0-37.0) g/dL RDW 12.5 (11.5-15.5) % Plt Count 268 (150-450) k/uL MPV 8.2 Neutrophils % 67 % Lymphocytes % 21 % Monocytes % 7 % Eosinophils % 3 % Basophils % 1 % Neutrophils # 8.8 H (1.3-7.7) k/uL Lymphocytes # 2.8 (1.0-4.8) k/uL Monocytes # 0.9 (0-1.0) k/uL Eosinophils # 0.4 (0-0.7) k/uL Basophils # 0.1 (0-0.2) k/uL ESR 12 (0-15) mm/hr Sodium 135 L (137-145) mmol/L Potassium 4.4 (3.5-5.1) mmol/L Chloride 100 (98-107) mmol/L Carbon Dioxide 28 (22-30) mmol/L Anion Gap 7 mmol/L BUN 16 (9-20) mg/dL Creatinine 0.82 (0.66-1.25) mg/dL Est GFR (CKD-EPI)AfAm >90 (>60 ml/min/1.73 sqM) Est GFR (CKD-EPI)NonAf >90 (>60 ml/min/1.73 sqM) Glucose 112 H (74-99) mg/dL Plasma Lactic Acid Marlon 1.8 (0.7-2.0) mmol/L Calcium 8.9 (8.4-10.2) mg/dL Total Bilirubin 0.4 (0.2-1.3) mg/dL AST 24 (17-59) U/L ALT 37 (4-49) U/L Alkaline Phosphatase 78 (38-126) U/L C-Reactive Protein 3.9 H (<1.0) mg/dL Total Protein 7.5 (6.3-8.2) g/dL Albumin 4.5 (3.5-5.0) g/dL Disposition Clinical Impression: Cat bite, Cellulitis Disposition: ADMITTED IP TO THIS [facility] Condition: Good Referrals: Alex Zimmer DO [Primary Care Provider] - 1-2 days Time of Disposition: 16:33 Decision to Admit Reason: Admit from EC Decision Date: 05/22/22 Decision Time: 16:33
[2022-05-22 15:58] LABS: Basophils # (A) 0.1 k/uL (0-0.2); Basophils % (A) 1 %; Eosinophils # (A) 0.4 k/uL (0-0.7); Eosinophils % (A) 3 %; Lymphocytes # (A) 2.8 k/uL (1.0-4.8); Lymphocytes % (A) 21 %; MCH 32.8 pg (25.0-35.0); MCV 96.3 fL (80.0-100.0); Mean Platelet Volume 8.2; Monocytes # (A) 0.9 k/uL (0-1.0); Monocytes % (A) 7 %; Neutrophils # (A) 8.8 k/uL (1.3-7.7); Neutrophils % (A) 67 %; Platelet Count 268 k/uL (150-450); RBC 4.88 m/uL (4.30-5.90); RDW 12.5 % (11.5-15.5); WBC 13.2 k/uL (3.8-10.6)
[2022-05-22] MEDS: SODIUM CHLORIDE 0.9% 1,000 ML IV SCH (16:04)
[2022-05-22 16:20] LABS: ALT 37 U/L (4-49); AST 24 U/L (17-59); African American GFR (CKD) >90 (>60 ml/min/1.73 sqM); Albumin 4.5 g/dL (3.5-5.0); Alkaline Phosphatase 78 U/L (38-126); Anion Gap 7 mmol/L; Blood Urea Nitrogen 16 mg/dL (9-20); Calcium 8.9 mg/dL (8.4-10.2); Carbon Dioxide 28 mmol/L (22-30); Chloride 100 mmol/L (98-107); Glucose 112 mg/dL (74-99); Non-African American GFR(CKD) >90 (>60 ml/min/1.73 sqM); Potassium 4.4 mmol/L (3.5-5.1); Sodium 135 mmol/L (137-145); Total Bilirubin 0.4 mg/dL (0.2-1.3); Total Protein 7.5 g/dL (6.3-8.2)
[2022-05-22 16:39] LABS: C Reactive Protein 3.9 mg/dL (<1.0)
[2022-05-22] MEDS ORDERED: NALOXONE 0.4 MG/ML 1 ML VIAL IV PRN (17:06)
[2022-05-22 17:09] LABS: Erythrocyte Sedimentation Rate 12 mm/hr (0-15)
[2022-05-22] MEDS: HYDROmorphone 1 MG/ML 1 ML SYRINGE IVP PRN ×2 (19:26→23:10)
[2022-05-22] MEDS: KETOROLAC 15 MG/ML 1 ML VIAL IVP PRN (19:26)
[2022-05-22] MEDS: ACETAMINOPHEN TAB 325 MG TAB PO PRN (23:10)
[2022-05-23] MEDS: SODIUM CHLORIDE 0.9% 1,000 ML IV SCH ×4 (00:44→21:31)
[2022-05-23] MEDS: HYDROmorphone 1 MG/ML 1 ML SYRINGE IVP PRN ×7 (02:45→21:31)
[2022-05-23] MEDS: KETOROLAC 15 MG/ML 1 ML VIAL IVP PRN ×4 (05:12→23:59)
[2022-05-23] MEDS ORDERED: AMPICILLIN-SULBACTAM 3 GM in SODIUM CHLORIDE 0.9% 100 ML IVPB SCH (08:00)
[2022-05-23] MEDS: lisinopriL 20 MG TAB PO SCH (08:38)
[2022-05-23] MEDS: HYDROcodone/APAP 5-325MG 1 EACH TAB PO PRN ×3 (08:38→16:46)
[2022-05-23] MEDS: PANTOPRAZOLE 40 MG TABLET PO SCH (08:40)
[2022-05-23] MEDS ORDERED: DIPH,PERTUS(ACELL)TETVAC-LF 0.5 ML VIAL IM ONE (11:25)
[2022-05-23] MEDS: AMPICILLIN-SULBACTAM 3 GM in SODIUM CHLORIDE 0.9% 100 ML IVPB SCH ×3 (11:35→23:55)
[2022-05-23] MEDS: SYMBICORT 160-4.5 MCG INHALER INHALATION SCH ×2 (12:04→20:08)
[2022-05-23] MEDS: NICOTINE 21MG/24HR PATCH TRANSDERM SCH (14:27)
--- NOTE | 2022-05-23 15:21 | P.HPIM ---
History of Present Illness H&P Date: 05/23/22 Chief Complaint: Cat Bite This is a 56-year-old gentleman with past medical history of hypertension, COPD, obesity and multiple other medical issues, returned to the ER for reevaluation of worsening cat bite site. Patient sustained multiple bites over his right hand and wrist from a wild neighborhood cat, had been discharged home from the ER on Augmentin but continues to have significant edema ,pain and increased redness of the affected site. Declining rabies series. Tetanus toxoid ordered. Denies any chest pain, palpitations or shortness of breath. Denies heavy li ghtheadedness, dizziness or focal deficits. Denies fevers or chills. Afebrile, WBC 13.2, hemoglobin 16, platelets 268, electrolytes and renal function stable. Lactic acid 1.8. CRP elevated, 3.9. Review of Systems ROS Statement: Those systems with pertinent positive or pertinent negative responses have been documented in the HPI. ROS Other: All systems not noted in ROS Statement are negative. Past Medical History Past Medical History: COPD, Eye Disorder, Hypertension, Musculoskeletal Disorder Additional Past Medical History / Comment(s): lumbar back pain History of Any Multi-Drug Resistant Organisms: None Reported Past Surgical History: Joint Replacement, Orthopedic Surgery Additional Past Surgical History / Comment(s): cataracts removed, ORIF LT HIP REPAIR 1983, METAL REMOVED 1984, bc hip replacements, colonoscopy, PAIN CLINIC PROCEDURES Past Anesthesia/Blood Transfusion Reactions: No Reported Reaction Past Psychological History: No Psychological Hx Reported Smoking Status: Current every day smoker Past Alcohol Use History: Occasional Additional Past Alcohol Use History / Comment(s): SMOKES 1PPD, SINCE 1986. Past Drug Use History: Marijuana Additional Drug Use History / Comment(s): OCC USE - Past Family History Mother Family Medical History: No Reported History Medications and Allergies Home Medications Medication Instructions Recorded Confirmed Type Benazepril HCl 20 mg PO DAILY 10/11/21 05/22/22 History Amoxic-Pot Clav 875-125Mg 1 tab PO Q12HR 7 Days #14 tab 05/22/22 05/22/22 Rx [Augmentin 875-125] Fluticasone/Umeclidin/Vilanter 1 puff INHALATION RT-DAILY 05/22/22 05/22/22 History [Trelegy Ellipta 100-62.5-25] HYDROcodone/APAP 5-325MG [[place] 1 tab PO Q4HR PRN 3 Days #18 tab 05/22/22 05/22/22 Rx 5-325] Allergies Allergy/AdvReac Type Severity Reaction Status Date / Time No Known Allergies Allergy Verified 05/22/22 18:26 Physical Exam Vitals: Vital Signs Temp Pulse Pulse Resp BP BP Pulse Ox 05/23/22 04:43 98 F 79 16 121/74 96 05/23/22 02:37 97.3 F L 80 16 147/94 97 05/23/22 00:45 79 15 139/66 100 05/22/22 19:27 72 15 138/66 100 05/22/22 14:04 97.9 F 82 18 151/92 98 Intake and Output 05/22/22 05/23/22 05/23/22 22:59 06:59 14:59 Intake Total 390 Balance 390 Intake: Intake, IV Titration 390 Amount Sodium Chloride 0.9% 1, 390 000 ml @ 130 mls/hr IV . Q7H42M [facility] Rx#:[id number] Other: Voiding Method Toilet Weight 122.47 kg PHYSICAL EXAM: VITAL SIGNS: [As above] GENERAL: Sitting up in bed, no acute distress HEENT: Conjunctivae normal. eyes normal. NECK: Supple, No JVD. No thyroid enlargement. No LNs CARDIOVASCULAR: S1, S2 regular.No murmur RESPIRATION: Breath sounds diminished in the bases. No rhonchi or crackles. No bronchial breathing. ABDOMEN: Soft, nontender . No guarding. no masses palpable. No ascites, No hepatosplenomegaly.Bowel sounds heard. EXTREMITIES: Right hand and forearm reddened, swollen, tender; limited fine motor movements with affected digits. Positive radial pulse PSYCHIATRY: Alert and oriented X3, mood and affect normal. NERVOUS SYSTEM: Cranial N 2-12 grossly normal.No focal deficits. Strength and sensation grossly intact. Results CBC & Chem 7: 05/22/22 15:39 05/22/22 15:39 Labs: Abnormal Lab Results - Last 24 Hours (Table) 05/22/22 05/22/22 Range/Units 15:39 15:39 WBC 13.2 H (3.8-10.6) k/uL Neutrophils # 8.8 H (1.3-7.7) k/uL Sodium 135 L (137-145) mmol/L Glucose 112 H (74-99) mg/dL C-Reactive Protein 3.9 H (<1.0) mg/dL Thrombosis Risk Factor Assmnt - Choose All That Apply Any of the Below Risk Factors Present?: Yes Each Factor Represents 1 point: Abnormal pulmonary function (COPD), Age 41-60 years, Obesity (BMI >25) Other Risk Factors: No Other congenital or acquired thrombophilia - If yes, enter type in comment: No Thrombosis Risk Factor Assessment Total Risk Factor Score: 3 Thrombosis Risk Factor Assessment Level: Moderate Risk Assessment and Plan Assessment: Cellulitis of right hand, wrist secondary to feline bite of a wild, neighborhood cat. COPD, stable Hypertension Musculoskeletal disorder Chronic back pain Ongoing nicotine dependence Occasional marijuana use Obesity, BMI 35.6 Plan: Continue on current medication regime ,monitoring and symptomatic treatment. Tetanus toxoid ordered, rabies series re-discussed, patient declining. Maintain IV antibiotics/unasyn. Pain management. Infectious disease consulted. Prognosis guarded given multiple complex medical issues. The impression and plan of care has been dictated as directed. : I performed a history and examination of this patient, discussed the same with the dictator. I agree with the dictator's note ,documented as a scribe. Any additional findings or plans will be noted.
--- NOTE | 2022-05-23 22:07 | P.CONS ---
History of Present Illness - Reason for Consult Consult date: 05/23/22 Cat bite cellulitis Requesting physician: Alex Zimmer - Chief Complaint Right hand pain swelling and redness x 2 days - History of Present Illness Patient is a 56-year-old male with a past medical he significant for COPD hypertension obesity presenting to the ER for evaluation of right hand wrist area pain and swelling redness apparently the patient was bitten by wild neighborhood cat over the weekend patient was initially evaluated in the ER on 05/21/2022 and was discharged on oral Augmentin patient presenting back to the ER the next day on 05/22/2022 concerning for worsening swelling redness to the right wrist and hand area patient described the pain to be throbbing intensity is almost 10 out of 10 with associated swelling redness but no drainage with the symptoms the patient was reevaluated by the ER physician on arrival to the ER the patient was afebrile and no fever has been recorded subsequently patient did have white count of 13.2 with a left shift kidney function has been normal liver enzymes are normal blood cultures obtained which are currently pending patient did have x-ray of the wrist completed on 05/21/2022 shows soft tissue swelling without evidence for radiopaque foreign body patient was started on Unasyn 3 g every 8 hours infectious disease was consulted for further management of antibiotic therapy Review of Systems Positive point has been mentioned in the HPI rest of the systems are negative Past Medical History Past Medical History: COPD, Eye Disorder, Hypertension, Musculoskeletal Disorder Additional Past Medical History / Comment(s): lumbar back pain History of Any Multi-Drug Resistant Organisms: None Reported Past Surgical History: Joint Replacement, Orthopedic Surgery Additional Past Surgical History / Comment(s): cataracts removed, ORIF LT HIP REPAIR 1983, METAL REMOVED 1984, bc hip replacements, colonoscopy, PAIN CLINIC PROCEDURES Past Anesthesia/Blood Transfusion Reactions: No Reported Reaction Past Psychological History: No Psychological Hx Reported Smoking Status: Current every day smoker Past Alcohol Use History: Occasional Additional Past Alcohol Use History / Comment(s): SMOKES 1PPD, SINCE 1986. Past Drug Use History: Marijuana Additional Drug Use History / Comment(s): OCC USE - Past Family History Mother Family Medical History: No Reported History Medications and Allergies Home Medications Medication Instructions Recorded Confirmed Type Benazepril HCl 20 mg PO DAILY 10/11/21 05/22/22 History Amoxic-Pot Clav 875-125Mg 1 tab PO Q12HR 7 Days #14 tab 05/22/22 05/22/22 Rx [Augmentin 875-125] Fluticasone/Umeclidin/Vilanter 1 puff INHALATION RT-DAILY 05/22/22 05/22/22 History [Trelegy Ellipta 100-62.5-25] HYDROcodone/APAP 5-325MG [[place] 1 tab PO Q4HR PRN 3 Days #18 tab 05/22/22 05/22/22 Rx 5-325] Allergies Allergy/AdvReac Type Severity Reaction Status Date / Time No Known Allergies Allergy Verified 05/22/22 18:26 Physical Exam Vitals: Vital Signs Temp Pulse Pulse Resp BP BP Pulse Ox 05/23/22 09:00 72 127/82 05/23/22 04:43 98 F 79 16 121/74 96 05/23/22 02:37 97.3 F L 80 16 147/94 97 05/23/22 00:45 79 15 139/66 100 05/22/22 19:27 72 15 138/66 100 05/22/22 14:04 97.9 F 82 18 151/92 98 Intake and Output 05/22/22 05/23/22 05/23/22 22:59 06:59 14:59 Intake Total 390 Balance 390 Intake: Intake, IV Titration 390 Amount Sodium Chloride 0.9% 1, 390 000 ml @ 130 mls/hr IV . Q7H42M [facility] Rx#:[id number] Other: Voiding Method Toilet Weight 122.47 kg GENERAL DESCRIPTION: Middle-aged male lying in bed, no distress. No tachypnea or accessory muscle of respiration use. HEENT: Shows Pallor , no scleral icterus. Oral mucous membrane is dry. No pharyngeal erythema or thrush NECK: Trachea central, no thyromegaly. LUNGS: Unlabored breathing. Clear to auscultation anteriorly. No wheeze or crackle. HEART: S1, S2, regular rate and rhythm. No loud murmur ABDOMEN: Soft, no tenderness , guarding or rigidity, no organomegaly EXTREMITIES: Right wrist forearm area did have a swelling and redness no open wound or any foul-smelling drainage SKIN: No rash, no masses palpable. NEUROLOGICAL: The patient is awake, alert, oriented x3, mood and affect normal. Results CBC & Chem 7: 05/22/22 15:39 05/22/22 15:39 Labs: Abnormal Lab Results - Last 24 Hours (Table) 05/22/22 05/22/22 Range/Units 15:39 15:39 WBC 13.2 H (3.8-10.6) k/uL Neutrophils # 8.8 H (1.3-7.7) k/uL Sodium 135 L (137-145) mmol/L Glucose 112 H (74-99) mg/dL C-Reactive Protein 3.9 H (<1.0) mg/dL Assessment and Plan (1) Cat bite Current Visit: Yes Status: Acute Code(s): W55.01XA - BITTEN BY CAT, INITIAL ENCOUNTER SNOMED Code(s): 305427630 (2) Cellulitis Current Visit: Yes Status: Acute Code(s): L03.90 - CELLULITIS, UNSPECIFIED SNOMED Code(s): 745688519 Plan: 1patient with right wrist and hand area cat bite cellulitis failing outpatient oral Augmentin therapy more likely because of the burden of disease patient x- ray did not show any foreign body and the patient is currently not febrile however did have elevated white count. 2we will increase the dose of Unasyn to 3 g every 6 hours. 3patient has been advised icing and elevation of the affected area. 4Marked area of the redness. We will follow on clinical condition and cultures to further adjust medication if needed Thank you for this consultation will follow this patient along with you
[2022-05-24] MEDS: HYDROmorphone 1 MG/ML 1 ML SYRINGE IVP PRN ×8 (00:46→22:51)
[2022-05-24] MEDS: SODIUM CHLORIDE 0.9% 1,000 ML IV SCH ×3 (03:58→20:50)
[2022-05-24] MEDS: KETOROLAC 15 MG/ML 1 ML VIAL IVP PRN (06:07)
[2022-05-24] MEDS: AMPICILLIN-SULBACTAM 3 GM in SODIUM CHLORIDE 0.9% 100 ML IVPB SCH ×4 (06:07→22:51)
[2022-05-24] MEDS: PANTOPRAZOLE 40 MG TABLET PO SCH (08:13)
[2022-05-24] MEDS: NICOTINE 21MG/24HR PATCH TRANSDERM SCH (08:13)
[2022-05-24] MEDS: lisinopriL 20 MG TAB PO SCH (08:13)
[2022-05-24 09:10] LABS: African American GFR (CKD) 123.1 (60.0-200.0); Anion Gap 8.3 mmol/L (10.00-18.00); BUN/Creat Ratio 22.14 Ratio (12.00-20.00); Blood Urea Nitrogen 15.5 mg/dL (9.0-27.0); Calcium 8.1 mg/dL (8.7-10.3); Carbon Dioxide 23.7 mmol/L (20.0-27.5); Non-African American GFR(CKD) 106.2 (60.0-200.0); Potassium 4.3 mmol/L (3.5-5.5)
[2022-05-24 09:12] LABS: Basophils # (A) 0.07 X 10*3/uL (0.00-0.10); Basophils % (A) 0.7 %; Eosinophils # (A) 0.39 X 10*3/uL (0.04-0.35); Eosinophils % (A) 3.8 %; HCT 36.8 % (39.6-50.0); HGB 12.2 g/dL (13.0-17.0); Immature Grans, Automated 0.3 %; Lymphocytes % (A) 35.4 %; MCH 32.1 pg (27.0-32.0); MCHC 33.2 g/dL (32.0-37.0); MCV 96.8 fL (80.0-97.0); Mean Platelet Volume 10.2 fL (9.5-12.2); Monocytes # (A) 1.19 X 10*3/uL (0.20-1.00); Monocytes % (A) 11.7 %; NRBC Per 100 WBC 0 /100 WBCS (0.0-0.0); Neutrophils # (A) 4.89 X 10*3/uL (1.80-7.70); Neutrophils % (A) 48.1 %; Platelet Count 235 X 10*3/uL (140-440); RDW 12.8 % (11.5-14.5); WBC 10.17 X 10*3/uL (4.50-10.00)
[2022-05-24] MEDS: SYMBICORT 160-4.5 MCG INHALER INHALATION SCH ×2 (12:22→19:17)
--- NOTE | 2022-05-24 15:34 | P.PN ---
Subjective Progress Note Date: 05/24/22 H&P Date: 05/23/22 Chief Complaint: Cat Bite This is a 56-year-old gentleman with past medical history of hypertension, COPD, obesity and multiple other medical issues, returned to the ER for reevaluation of worsening cat bite site. Patient sustained multiple bites over his right hand and wrist from a wild neighborhood cat, had been discharged home from the ER on Augmentin but continues to have significant edema ,pain and increased redness of the affected site. Declining rabies series. Tetanus toxoid ordered. Denies any chest pain, palpitations or shortness of breath. Denies heavy lightheadedness, dizziness or focal deficits. Denies fevers or chills. Afebrile, WBC 13.2, hemoglobin 16, platelets 268, electrolytes and renal function stable. Lactic acid 1.8. CRP elevated, 3.9. 05/24/2022 evaluated by infectious disease, Zosyn dose increased. Toradol added for increased pain last night. Significant clinical improvement. Labs pending, decreased pain edema and redness. Denies chest pain, palpitations or shortness of breath. Afebrile, WBC decreased to 10.17. Preliminary blood cultures reporting no growth at 24 hours. Objective - Vital Signs Vital signs: Vital Signs Temp 98 F 05/24/22 13:00 Pulse 72 05/24/22 13:00 Resp 16 05/24/22 13:00 BP 149/98 05/24/22 13:00 Pulse Ox 97 05/24/22 13:00 FiO2 Intake & Output 05/23/22 05/24/22 05/24/22 18:59 06:59 18:59 Intake Total 1860 2300 Balance 1860 2300 Intake: IV 1560 Sodium Chloride 0.9% 1, 1560 000 ml @ 130 mls/hr IV . Q7H42M [facility] Rx#:[id number] Intake, IV Titration 300 1700 Amount Ampicillin-Sulbactam 3 gm 300 200 In Sodium Chloride 0.9% 100 ml @ 200 mls/hr IVPB Q6HR [facility] Rx#:[id number] Sodium Chloride 0.9% 1, 1500 000 ml @ 130 mls/hr IV . Q7H42M [facility] Rx#:[id number] Oral 600 Other: Voiding Method Toilet # Voids 2 3 - Exam PHYSICAL EXAM: VITAL SIGNS: [As above] GENERAL: Alert and oriented 3, Sitting up at side of bed, no acute distress HEENT: Conjunctivae normal. eyes normal. Oral mucosa moist NECK: Supple, No JVD. CARDIOVASCULAR: S1, S2 regular.No murmur RESPIRATION: Unlabored, Breath sounds diminished in the bases. ABDOMEN: Soft, nontender . No guarding. no masses palpable. Bowel sounds heard. EXTREMITIES: Right hand and forearm decreased redness, edema, and tenderness; improving fine motor movements with affected digits. Positive radial pulse NERVOUS SYSTEM: Cranial N 2-12 grossly normal.No focal deficits. Strength and sensation grossly intact. - Labs CBC & Chem 7: 05/24/22 06:01 05/24/22 06:01 Labs: Abnormal Lab Results - Last 24 Hours (Table) 05/24/22 05/24/22 Range/Units 06:01 06:01 WBC 10.17 H (4.50-10.00) X 10*3/uL RBC 3.80 L (4.40-5.60) X 10*6/uL Hgb 12.2 L (13.0-17.0) g/dL Hct 36.8 L (39.6-50.0) % MCH 32.1 H (27.0-32.0) pg Monocytes # 1.19 H (0.20-1.00) X 10*3/uL Eosinophils # 0.39 H (0.04-0.35) X 10*3/uL Sodium 134 L (135-145) mmol/L Anion Gap 8.30 L (10.00-18.00) mmol/L BUN/Creatinine Ratio 22.14 H (12.00-20.00) Ratio Glucose 115 H (70-110) mg/dL Calcium 8.1 L (8.7-10.3) mg/dL Microbiology - Last 24 Hours (Table) 05/22/22 15:39 Blood Culture - Preliminary Blood No Growth after 24 hours Assessment and Plan Assessment: Cellulitis of right hand, wrist secondary to feline bite of a wild, neighborhood cat. COPD, stable Hypertension Musculoskeletal disorder Chronic back pain Ongoing nicotine dependence Occasional marijuana use Obesity, BMI 35.6 Plan: Continue on current medication regime ,monitoring and symptomatic carl tment. Pain management. Continue IV antibiotics/unasyn as per Infectious disease consulted. The impression and plan of care has been dictated as directed. : I performed a history and examination of this patient, discussed the same with the dictator. I agree with the dictator's note ,documented as a scribe. Any additional findings or plans will be noted.
--- NOTE | 2022-05-24 17:37 | P.PN ---
Subjective Progress Note Date: 05/24/22 Principal diagnosis: Right wrist cat bite cellulitis athannah is a 56-year-old male with a past medical he significant for COPD hypertension obesity presenting to the ER for evaluation of right hand wrist area pain and swelling redness apparently the patient was bitten by wild neighborhood cat over the weekend patient was initially evaluated in the ER on 05/21/2022 and was discharged on oral Augmentin patient presenting back to the ER the next day on 05/22/2022 concerning for worsening swelling redness to the right wrist and hand . On today's evaluation that is 05/24/2022, the patient denies having any fever or any chills patient right wrist pain and swelling has slightly decreased still have an area of erythema but no drainage and no chest pain shortness of breath or cough no abdominal pain no diarrhea Objective - Vital Signs Vital signs: Vital Signs Temp 97.4 F L 05/24/22 03:58 Pulse 75 05/24/22 03:58 Resp 18 05/24/22 03:58 BP 131/83 05/24/22 03:58 Pulse Ox 96 05/24/22 03:58 FiO2 Intake & Output 05/23/22 05/24/22 05/24/22 18:59 06:59 18:59 Intake Total 1860 2300 Balance 1860 2300 Intake: IV 1560 Sodium Chloride 0.9% 1, 1560 000 ml @ 130 mls/hr IV . Q7H42M [facility] Rx#:[id number] Intake, IV Titration 300 1700 Amount Ampicillin-Sulbactam 3 gm 300 200 In Sodium Chloride 0.9% 100 ml @ 200 mls/hr IVPB Q6HR [facility] Rx#:[id number] Sodium Chloride 0.9% 1, 1500 000 ml @ 130 mls/hr IV . Q7H42M [facility] Rx#:[id number] Oral 600 Other: Voiding Method Toilet # Voids 2 3 - Exam GENERAL DESCRIPTION: Middle-age male lying in bed in no distress RESPIRATORY SYSTEM: Unlabored breathing , decreased breath sounds at bases HEART: S1 S2 regular rate and rhythm , ABDOMEN: Soft , no tenderness EXTREMITIES: Right wrist did have area of erythema slight swelling no drainage was noticed - Labs CBC & Chem 7: 05/24/22 06:01 05/24/22 06:01 Labs: Abnormal Lab Results - Last 24 Hours (Table) 05/24/22 05/24/22 Range/Units 06:01 06:01 WBC 10.17 H (4.50-10.00) X 10*3/uL RBC 3.80 L (4.40-5.60) X 10*6/uL Hgb 12.2 L (13.0-17.0) g/dL Hct 36.8 L (39.6-50.0) % MCH 32.1 H (27.0-32.0) pg Monocytes # 1.19 H (0.20-1.00) X 10*3/uL Eosinophils # 0.39 H (0.04-0.35) X 10*3/uL Sodium 134 L (135-145) mmol/L Anion Gap 8.30 L (10.00-18.00) mmol/L BUN/Creatinine Ratio 22.14 H (12.00-20.00) Ratio Glucose 115 H (70-110) mg/dL Calcium 8.1 L (8.7-10.3) mg/dL Microbiology - Last 24 Hours (Table) 05/22/22 15:39 Blood Culture - Preliminary Blood No Growth after 24 hours Assessment and Plan (1) Cat bite Current Visit: Yes Status: Acute Code(s): W55.01XA - BITTEN BY CAT, INITIAL ENCOUNTER SNOMED Code(s): 567691576 (2) Cellulitis Current Visit: Yes Status: Acute Code(s): L03.90 - CELLULITIS, UNSPECIFIED SNOMED Code(s): 803489137 Plan: 1patient with right wrist and hand area cat bite cellulitis failing outpatient oral Augmentin therapy more likely because of the burden of disease patient x- ray did not show any foreign body and the patient is currently not febrile however did have elevated white count. 2patient seemed to have shortness of clinical improvement and white count has came down, 3- patient to continue with Unasyn to 3 g every 6 hours.
[2022-05-24] MEDS: HYDROcodone/APAP 5-325MG 1 EACH TAB PO PRN (17:40)
[2022-05-25] MEDS: HYDROcodone/APAP 5-325MG 1 EACH TAB PO PRN ×4 (01:09→21:47)
[2022-05-25] MEDS: SODIUM CHLORIDE 0.9% 1,000 ML IV SCH ×3 (01:10→16:57)
[2022-05-25] MEDS: HYDROmorphone 1 MG/ML 1 ML SYRINGE IVP PRN ×6 (03:27→23:35)
[2022-05-25] MEDS: AMPICILLIN-SULBACTAM 3 GM in SODIUM CHLORIDE 0.9% 100 ML IVPB SCH ×4 (05:14→23:35)
[2022-05-25] MEDS: SYMBICORT 160-4.5 MCG INHALER INHALATION SCH ×2 (07:58→20:07)
[2022-05-25] MEDS: NICOTINE 21MG/24HR PATCH TRANSDERM SCH (08:42)
[2022-05-25] MEDS: lisinopriL 20 MG TAB PO SCH (08:43)
[2022-05-25] MEDS: PANTOPRAZOLE 40 MG TABLET PO SCH (08:43)
[2022-05-25 09:18] LABS: African American GFR (CKD) 112.2 (60.0-200.0); Anion Gap 10.5 mmol/L (10.00-18.00); BUN/Creat Ratio 14.35 Ratio (12.00-20.00); Blood Urea Nitrogen 12.6 mg/dL (9.0-27.0); Calcium 8.3 mg/dL (8.7-10.3); Carbon Dioxide 21.2 mmol/L (20.0-27.5); Non-African American GFR(CKD) 96.8 (60.0-200.0); Potassium 4.4 mmol/L (3.5-5.5)
[2022-05-25 09:34] LABS: Basophils # (A) 0.04 X 10*3/uL (0.00-0.10); Basophils % (A) 0.4 %; Eosinophils # (A) 0.33 X 10*3/uL (0.04-0.35); Eosinophils % (A) 3.4 %; HCT 37.8 % (39.6-50.0); HGB 12.3 g/dL (13.0-17.0); Immature Grans, Automated 0.4 %; Lymphocytes % (A) 31.3 %; MCH 32.5 pg (27.0-32.0); MCHC 32.5 g/dL (32.0-37.0); Mean Platelet Volume 10.9 fL (9.5-12.2); Monocytes # (A) 0.75 X 10*3/uL (0.20-1.00); Monocytes % (A) 7.8 %; NRBC Per 100 WBC 0 /100 WBCS (0.0-0.0); Neutrophils # (A) 5.43 X 10*3/uL (1.80-7.70); Neutrophils % (A) 56.7 %; Platelet Count 246 X 10*3/uL (140-440); RBC 3.78 X 10*6/uL (4.40-5.60); RDW 12.5 % (11.5-14.5); WBC 9.59 X 10*3/uL (4.50-10.00)
--- NOTE | 2022-05-25 17:56 | P.CNOR ---
History of Present Illness - [facility] Consult date: 05/25/22 Consult reason: joint pain (Right wrist) History of present illness: This is a 56-year-old male with history of being bitten by a stray cat on 05/20/2022. He did present to the emergency department on 05/21/2022 and was given a dose of antibiotics and sent home on oral Augmentin. The patient did not rock picker the prescription area he return to the emergency department with worsening of his swelling to the wrist. He is admitted for IV antibiotics and infectious disease and orthopedic evaluation. He is currently on IV Unasyn. He is afebrile and his white blood cell count has come down to normal range. Past Medical History Past Medical History: COPD, Eye Disorder, Hypertension, Musculoskeletal Disorder Additional Past Medical History / Comment(s): lumbar back pain History of Any Multi-Drug Resistant Organisms: None Reported Past Surgical History: Joint Replacement, Orthopedic Surgery Additional Past Surgical History / Comment(s): cataracts removed, ORIF LT HIP REPAIR 1983, METAL REMOVED 1984, bc hip replacements, colonoscopy, PAIN CLINIC PROCEDURES Past Anesthesia/Blood Transfusion Reactions: No Reported Reaction Past Psychological History: No Psychological Hx Reported Smoking Status: Current every day smoker Past Alcohol Use History: Occasional Additional Past Alcohol Use History / Comment(s): SMOKES 1PPD, SINCE 1986. Past Drug Use History: Marijuana Additional Drug Use History / Comment(s): OCC USE - Past Family History Mother Family Medical History: No Reported History Medications and Allergies Home Medications Medication Instructions Recorded Confirmed Type Benazepril HCl 20 mg PO DAILY 10/11/21 05/22/22 History Amoxic-Pot Clav 875-125Mg 1 tab PO Q12HR 7 Days #14 tab 05/22/22 05/22/22 Rx [Augmentin 875-125] Fluticasone/Umeclidin/Vilanter 1 puff INHALATION RT-DAILY 05/22/22 05/22/22 History [Trelegy Ellipta 100-62.5-25] HYDROcodone/APAP 5-325MG [[place] 1 tab PO Q4HR PRN 3 Days #18 tab 05/22/22 05/22/22 Rx 5-325] Allergies Allergy/AdvReac Type Severity Reaction Status Date / Time No Known Allergies Allergy Verified 05/22/22 18:26 Physical Examination This is a pleasant 56-year-old male in no acute distress. He is alert and oriented 3. Exam of the right upper extremity reveals a focal area of redness about the ulnar aspect of the dorsal wrist. There is slight limitation in his wrist motion secondary to pain. There are no open wounds or drainage. There are scabs where the bite dominguez are. He has full finger motion without difficulty or pain. Neurovascular status to the upper extremity is intact. Results X-rays of the hand and wrist reveal no foreign body or fracture. - Labs Labs: Abnormal Lab Results - Last 24 Hours (Table) 05/25/22 05/25/22 Range/Units 06:03 06:03 RBC 3.78 L (4.40-5.60) X 10*6/uL Hgb 12.3 L (13.0-17.0) g/dL Hct 37.8 L (39.6-50.0) % MCV 100.0 H (80.0-97.0) fL MCH 32.5 H (27.0-32.0) pg Glucose 171 H (70-110) mg/dL Calcium 8.3 L (8.7-10.3) mg/dL Microbiology - Last 24 Hours (Table) 05/22/22 15:39 Blood Culture - Preliminary Blood No Growth after 48 hours H & H 05/22/22 05/24/22 05/25/22 Range/Units 15:39 06:01 06:03 Hgb 16.0 12.2 L 12.3 L (13.0-17.5) gm/dL Hct 47.0 36.8 L 37.8 L (39.0-53.0) % Result Diagrams: 05/25/22 06:03 05/25/22 06:03 Assessment and Plan (1) Cat bite Current Visit: Yes Status: Acute Code(s): W55.01XA - BITTEN BY CAT, INITIAL ENCOUNTER SNOMED Code(s): 375061655 (2) Cellulitis Current Visit: Yes Status: Acute Code(s): L03.90 - CELLULITIS, UNSPECIFIED SNOMED Code(s): 418468459 Plan: The clinical and x-ray findings are discussed with the patient. It is recommended he have a computed tomography scan for further evaluation for possible abscess. He is to use a warm compress to the area to increase the antibiotic to the area. We will reevaluate tomorrow and review the computed tomography scan.
--- NOTE | 2022-05-25 18:28 | CT ---
EXAMINATION TYPE: CT wrist RT wo con CT DLP: 172.4 mGycm, Automated exposure control for dose reduction was used. DATE OF EXAM: 05/25/2022 6:24 PM COMPARISON: . Extremity radiograph 05/21/2022 CLINICAL INDICATION:Male, 56 years old with history of r/o abscess, s/p cat bite;, r/o abscess, s/p c at bite TECHNIQUE: Axial images were obtained of the right wrist . Additional coronal and sagittal reformatt ed images and soft tissue and bone window were obtained for review. 3-D reconstruction was created on a separate workstation. Contrast used: None Oral contrast used: None FINDINGS: * There is no evidence of fracture, subluxation, or dislocation. No joint effusion is identified. N o focal muscular atrophy or edema is identified. * Fat stranding changes throughout the right forearm and hand. No organizing fluid collection at thi s time. No evidence of radiopaque foreign body. Tissue swelling throughout the right forearm. IMPRESSION: Right upper extremity subcutaneous edema most consistent with cellulitis/infection No evidence of org anizing fluid collection. No evidence radiopaque foreign body.
--- NOTE | 2022-05-25 22:52 | P.PN ---
Subjective Progress Note Date: 05/25/22 Principal diagnosis: Right wrist cat bite cellulitis athannah is a 56-year-old male with a past medical he significant for COPD hypertension obesity presenting to the ER for evaluation of right hand wrist area pain and swelling redness apparently the patient was bitten by wild neighborhood cat over the weekend patient was initially evaluated in the ER on 05/21/2022 and was discharged on oral Augmentin patient presenting back to the ER the next day on 05/22/2022 concerning for worsening swelling redness to the right wrist and hand . On today's evaluation that is 05/25/2022, the patient remains to be afebrile, patient right wrist pain and swelling has mildly decreased in intensity, the patient still have an area of erythema but no drainage and no chest pain shortn ess of breath or cough no abdominal pain no diarrhea Objective - Vital Signs Vital signs: Vital Signs Temp 98 F 05/25/22 04:52 Pulse 78 05/25/22 04:52 Resp 16 05/25/22 04:52 BP 117/80 05/25/22 04:52 Pulse Ox 91 L 05/25/22 04:52 FiO2 Intake & Output 05/24/22 05/25/22 05/25/22 18:59 06:59 18:59 Intake Total 1760 1000 Balance 1760 1000 Intake: IV 1560 Sodium Chloride 0.9% 1, 1560 000 ml @ 130 mls/hr IV . Q7H42M BRAIN Rx#:[id number] Intake, IV Titration 200 Amount Ampicillin-Sulbactam 3 gm 200 In Sodium Chloride 0.9% 100 ml @ 200 mls/hr IVPB Q6HR BRAIN Rx#:[id number] Oral 1000 Other: # Voids 4 - Exam GENERAL DESCRIPTION: Middle-age male lying in bed in no distress RESPIRATORY SYSTEM: Unlabored breathing , decreased breath sounds at bases HEART: S1 S2 regular rate and rhythm , ABDOMEN: Soft , no tenderness EXTREMITIES: Right wrist did have area of erythema slight swelling no drainage was noticed - Labs CBC & Chem 7: 05/25/22 06:03 05/25/22 06:03 Labs: Abnormal Lab Results - Last 24 Hours (Table) 05/25/22 05/25/22 Range/Units 06:03 06:03 RBC 3.78 L (4.40-5.60) X 10*6/uL Hgb 12.3 L (13.0-17.0) g/dL Hct 37.8 L (39.6-50.0) % MCV 100.0 H (80.0-97.0) fL MCH 32.5 H (27.0-32.0) pg Glucose 171 H (70-110) mg/dL Calcium 8.3 L (8.7-10.3) mg/dL Microbiology - Last 24 Hours (Table) 05/22/22 15:39 Blood Culture - Preliminary Blood No Growth after 48 hours Assessment and Plan (1) Cat bite Current Visit: Yes Status: Acute Code(s): W55.01XA - BITTEN BY CAT, INITIAL ENCOUNTER SNOMED Code(s): 594361224 (2) Cellulitis Current Visit: Yes Status: Acute Code(s): L03.90 - CELLULITIS, UNSPECIFIED SNOMED Code(s): 652252703 Plan: 1patient with right wrist and hand area cat bite cellulitis failing outpatient oral Augmentin therapy more likely because of the burden of disease patient x- ray did not show any foreign body and the patient is currently not febrile however did have elevated white count. 2patient still have an area of swelling and some fluctuation concerning for possible abscess and will benefit from orthopedics evaluation for possible drainage, this was discussed with the TECHNICAL INSPECTOR for admitting team 3- patient to continue with Unasyn to 3 g every 6 hours. Time with Patient: Less than 30
[2022-05-26] MEDS: AMPICILLIN-SULBACTAM 3 GM in SODIUM CHLORIDE 0.9% 100 ML IVPB SCH ×3 (04:29→18:16)
[2022-05-26] MEDS: HYDROmorphone 1 MG/ML 1 ML SYRINGE IVP PRN ×6 (04:30→21:10)
[2022-05-26] MEDS: SODIUM CHLORIDE 0.9% 1,000 ML IV SCH ×3 (04:31→21:10)
[2022-05-26] MEDS: lisinopriL 20 MG TAB PO SCH (08:12)
[2022-05-26] MEDS: PANTOPRAZOLE 40 MG TABLET PO SCH (08:12)
[2022-05-26] MEDS: NICOTINE 21MG/24HR PATCH TRANSDERM SCH (08:12)
[2022-05-26] MEDS: SYMBICORT 160-4.5 MCG INHALER INHALATION SCH ×2 (09:16→19:37)
--- NOTE | 2022-05-26 10:23 | P.PN ---
Subjective Progress Note Date: 05/26/22 Principal diagnosis: Cellulitis right wrist. Status post cat bite right wrist. This is a 56-year-old male with history of being bitten by a stray cat on 05/20/2022. He did present to the emergency department on 05/21/2022 and was given a dose of antibiotics and sent home on oral Augmentin. The patient did not pepper picker the prescription area he return to the emergency de partment with worsening of his swelling to the wrist. He is admitted for IV antibiotics and infectious disease and orthopedic evaluation. He is currently on IV Unasyn. He is afebrile and his white blood cell count has come down to normal range. He was seen on evaluation yesterday. Computed tomography scan was ordered to rule out abscess. Computed tomography scan reveals no joint effusion or soft tissue abscess. Generalized edema is seen in the area of the cat bite. The patient has been afebrile. He continues on IV antibiotics. Vital signs are stable. Objective - Vital Signs Vital signs: Vital Signs Temp 97.4 F L 05/26/22 04:05 Pulse 61 05/26/22 04:05 Resp 18 05/26/22 04:05 BP 161/93 05/26/22 04:05 Pulse Ox 96 05/26/22 04:05 FiO2 Intake & Output 05/25/22 05/26/22 05/26/22 18:59 06:59 18:59 Intake Total 480 Balance 480 Intake: Oral 480 Other: Voiding Method Toilet # Voids 3 2 - Exam This is a pleasant 56-year-old male in no acute distress. He is alert and oriented 3. He is sitting up in a chair at bedside. Exam of the right wrist reveals that the area of erythema is slightly improved. He continues to have generalized swelling about the wrist and hand. He has slight limitation in range of motion of the wrist secondary to pain and swelling. He has fairly good finger motion without difficulty or pain. Neurovascular status the upper extremity is intact. - Labs CBC & Chem 7: 05/25/22 06:03 05/25/22 06:03 Labs: Microbiology - Last 24 Hours (Table) 05/22/22 15:39 Blood Culture - Preliminary Blood No Growth after 72 hours Assessment and Plan (1) Cat bite Current Visit: Yes Status: Acute Code(s): W55.01XA - BITTEN BY CAT, INITIAL ENCOUNTER SNOMED Code(s): 860349423 (2) Cellulitis Current Visit: Yes Status: Acute Code(s): L03.90 - CELLULITIS, UNSPECIFIED SNOMED Code(s): 926184299 Plan: The clinical and x-ray findings are discussed with the patient. There is no evidence of abscess on computed tomography scan. He is to continue IV antibiotics per infectious disease. I recommend he continue warm compresses to the area. He is to follow-up with orthopedics as needed.
[2022-05-26] MEDS ORDERED: VANCOMYCIN IV PER PHARMACY 1 EACH MISC MISCELLANE PRN (14:15)
--- NOTE | 2022-05-26 14:17 | P.PN ---
Subjective Progress Note Date: 05/26/22 Principal diagnosis: Right wrist cat bite cellulitis carlos is a 56-year-old male with a past medical he significant for COPD hypertension obesity presenting to the ER for evaluation of right hand wrist area pain and swelling redness apparently the patient was bitten by wild neighborhood cat over the weekend patient was initially evaluated in the ER on 05/21/2022 and was discharged on oral Augmentin patient presenting back to the ER the next day on 05/22/2022 concerning for worsening swelling redness to the right wrist and hand . On today's evaluation that is 05/26/2022, the patient continues to be afebrile, patient is still complaining of right wrist pain and swelling patient currently with no open wound or any drainage, the patient denies chest pain shortness of breath or cough no abdominal pain no diarrhea Objective - Vital Signs Vital signs: Vital Signs Temp 97.4 F L 05/26/22 04:05 Pulse 61 05/26/22 04:05 Resp 18 05/26/22 04:05 BP 161/93 05/26/22 04:05 Pulse Ox 96 05/26/22 04:05 FiO2 Intake & Output 05/25/22 05/26/22 05/26/22 18:59 06:59 18:59 Intake Total 480 Balance 480 Intake: Oral 480 Other: Voiding Method Toilet # Voids 3 2 - Exam GENERAL DESCRIPTION: Middle-age male lying in bed in no distress RESPIRATORY SYSTEM: Unlabored breathing , decreased breath sounds at bases HEART: S1 S2 regular rate and rhythm , ABDOMEN: Soft , no tenderness EXTREMITIES: Right wrist did have area of erythema slight swelling no drainage was noticed - Labs CBC & Chem 7: 05/25/22 06:03 05/25/22 06:03 Labs: Microbiology - Last 24 Hours (Table) 05/22/22 15:39 Blood Culture - Preliminary Blood No Growth after 72 hours Assessment and Plan (1) Cat bite Current Visit: Yes Status: Acute Code(s): W55.01XA - BITTEN BY CAT, INITIAL ENCOUNTER SNOMED Code(s): 535716982 (2) Cellulitis Current Visit: Yes Status: Acute Code(s): L03.90 - CELLULITIS, UNSPECIFIED SNOMED Code(s): 235099209 Plan: 1patient with right wrist and hand area cat bite cellulitis failing outpatient oral Augmentin therapy more likely because of the burden of disease patient x- ray did not show any foreign body and the patient is currently not febrile however did have elevated white count. 2patient still have an area of swelling and some fluctuation concerning for possible abscess, patient was evaluated by orthopedics patient did have a CT of the right wrist mention no abscess 3- patient to continue with Unasyn to 3 g every 6 hours. However with no significant improvement we will add vancomycin also advised Asad wrap to decrease some of the swelling down and will reevaluate the patient tomorrow Time with Patient: Less than 30
[2022-05-26] MEDS: VANCOMYCIN 2,000 MG in SODIUM CHLORIDE 0.9% 500 ML 500 ML IVPB SCH (15:01)
[2022-05-26] MEDS: HYDROcodone/APAP 5-325MG 1 EACH TAB PO PRN ×2 (17:01→22:25)
--- NOTE | 2022-05-26 20:11 | P.PN ---
Subjective Progress Note Date: 05/25/22 Patient is a pleasant 56-year-old white male who sustained acat Bite to his right hand with local cellulitis edema and pain So far infectious disease consult is following and there is requested for a computed tomography scan of the hand and orthopedic consultation Objective - Vital Signs Vital signs: Vital Signs Temp 98.0 F 05/26/22 11:12 Pulse 78 05/26/22 11:12 Resp 18 05/26/22 11:12 BP 171/96 05/26/22 11:12 Pulse Ox 95 05/26/22 11:12 FiO2 Intake & Output 05/25/22 05/26/22 05/26/22 18:59 06:59 18:59 Intake Total 480 Balance 480 Intake: Oral 480 Other: Voiding Method Toilet # Voids 3 2 - Exam GENERAL: Alert and oriented 3, Sitting up at side of bed, no acute distress HEENT: Conjunctivae normal. eyes normal. Oral mucosa moist NECK: Supple, No JVD. CARDIOVASCULAR: S1, S2 regular.No murmur RESPIRATION: Unlabored, Breath sounds diminished in the bases. ABDOMEN: Soft, nontender . No guarding. no masses palpable. Bowel sounds heard. EXTREMITIES: Right hand and forearm decreased redness, edema, and tenderness; im proving fine motor movements with affected digits. Positive radial pulse NERVOUS SYSTEM: Cranial N 2-12 grossly normal.No focal deficits. Strength and sensation grossly intact. - Labs CBC & Chem 7: 05/25/22 06:03 05/25/22 06:03 Labs: Microbiology - Last 24 Hours (Table) 05/22/22 15:39 Blood Culture - Preliminary Blood No Growth after 72 hours Assessment and Plan (1) Cat bite Current Visit: Yes Status: Acute Code(s): W55.01XA - BITTEN BY CAT, INITIAL ENCOUNTER SNOMED Code(s): 860660384 (2) Cellulitis Current Visit: Yes Status: Acute Code(s): L03.90 - CELLULITIS, UNSPECIFIED SNOMED Code(s): 165291758 Plan: Continue infectious disease recommendations IV antibiotics warm compresses pain control and await computed tomography scan of the hand
--- NOTE | 2022-05-26 20:13 | P.PN ---
Subjective Progress Note Date: 05/26/22 Patient is a pleasant 56-year-old white male who sustained acat Bite to his right hand with local cellulitis edema and pain So far infectious disease consult is following and there is requested for a computed tomography scan of the hand and orthopedic consultation Objective - Vital Signs Vital signs: Vital Signs Temp 98.0 F 05/26/22 11:12 Pulse 78 05/26/22 11:12 Resp 18 05/26/22 11:12 BP 171/96 05/26/22 11:12 Pulse Ox 95 05/26/22 11:12 FiO2 Intake & Output 05/25/22 05/26/22 05/26/22 18:59 06:59 18:59 Intake Total 480 Balance 480 Intake: Oral 480 Other: Voiding Method Toilet # Voids 3 2 - Exam GENERAL: Alert and oriented 3, Sitting up at side of bed, no acute distress HEENT: Conjunctivae normal. eyes normal. Oral mucosa moist NECK: Supple, No JVD. CARDIOVASCULAR: S1, S2 regular.No murmur RESPIRATION: Unlabored, Breath sounds diminished in the bases. ABDOMEN: Soft, nontender . No guarding. no masses palpable. Bowel sounds heard. EXTREMITIES: Right hand and forearm decreased redness, edema, and tenderness; im proving fine motor movements with affected digits. Positive radial pulse NERVOUS SYSTEM: Cranial N 2-12 grossly normal.No focal deficits. Strength and sensation grossly intact. - Labs CBC & Chem 7: 05/25/22 06:03 05/25/22 06:03 Labs: Microbiology - Last 24 Hours (Table) 05/22/22 15:39 Blood Culture - Preliminary Blood No Growth after 72 hours Assessment and Plan (1) Cat bite Current Visit: Yes Status: Acute Code(s): W55.01XA - BITTEN BY CAT, INITIAL ENCOUNTER SNOMED Code(s): 634432368 (2) Cellulitis Current Visit: Yes Status: Acute Code(s): L03.90 - CELLULITIS, UNSPECIFIED SNOMED Code(s): 065577599 Plan: Continue infectious disease recommendations IV antibiotics warm compresses pain control Computed tomography scan of the hand was negative for abscess orthopedics will see PRN.
[2022-05-27] MEDS: AMPICILLIN-SULBACTAM 3 GM in SODIUM CHLORIDE 0.9% 100 ML IVPB SCH ×5 (00:43→23:29)
[2022-05-27] MEDS: HYDROmorphone 1 MG/ML 1 ML SYRINGE IVP PRN ×5 (01:14→17:47)
[2022-05-27] MEDS: SODIUM CHLORIDE 0.9% 1,000 ML IV SCH ×3 (03:42→19:34)
[2022-05-27] MEDS: VANCOMYCIN 2,000 MG in SODIUM CHLORIDE 0.9% 500 ML 500 ML IVPB SCH ×3 (03:42→19:33)
[2022-05-27] MEDS: ACETAMINOPHEN TAB 325 MG TAB PO PRN ×2 (06:12→20:22)
[2022-05-27] MEDS: HYDROcodone/APAP 5-325MG 1 EACH TAB PO PRN ×3 (06:12→20:21)
[2022-05-27 08:08] LABS: African American GFR (CKD) >90 (>60 ml/min/1.73 sqM); Anion Gap 5 mmol/L; Blood Urea Nitrogen 12 mg/dL (9-20); Calcium 8.1 mg/dL (8.4-10.2); Carbon Dioxide 24 mmol/L (22-30); Chloride 107 mmol/L (98-107); Glucose 116 mg/dL (74-99); Non-African American GFR(CKD) >90 (>60 ml/min/1.73 sqM); Potassium 4.2 mmol/L (3.5-5.1); Sodium 136 mmol/L (137-145)
[2022-05-27 08:22] LABS: Basophils # (A) 0.1 k/uL (0-0.2); Basophils % (A) 1 %; Eosinophils # (A) 0.4 k/uL (0-0.7); Eosinophils % (A) 4 %; HCT 37.1 % (39.0-53.0); Lymphocytes # (A) 2.8 k/uL (1.0-4.8); Lymphocytes % (A) 32 %; MCH 32.4 pg (25.0-35.0); MCHC 34.1 g/dL (31.0-37.0); MCV 95.1 fL (80.0-100.0); Mean Platelet Volume 9.6; Monocytes # (A) 0.8 k/uL (0-1.0); Monocytes % (A) 9 %; Neutrophils # (A) 4.6 k/uL (1.3-7.7); Neutrophils % (A) 52 %; Platelet Count 263 k/uL (150-450); RBC 3.91 m/uL (4.30-5.90); RDW 12.3 % (11.5-15.5); WBC 8.7 k/uL (3.8-10.6)
[2022-05-27 08:29] LABS: HGB 12.6 gm/dL (13.0-17.5)
[2022-05-27] MEDS: SYMBICORT 160-4.5 MCG INHALER INHALATION SCH ×2 (08:43→20:40)
[2022-05-27] MEDS: NICOTINE 21MG/24HR PATCH TRANSDERM SCH (08:50)
[2022-05-27] MEDS: PANTOPRAZOLE 40 MG TABLET PO SCH (08:50)
[2022-05-27] MEDS: lisinopriL 20 MG TAB PO SCH (08:50)
[2022-05-27 09:32] LABS: C Reactive Protein 4.2 mg/dL (<1.0)
--- NOTE | 2022-05-27 20:48 | P.PN ---
Subjective Progress Note Date: 05/27/22 Principal diagnosis: Right wrist cat bite cellulitis carlos is a 56-year-old male with a past medical he significant for COPD hypertension obesity presenting to the ER for evaluation of right hand wrist area pain and swelling redness apparently the patient was bitten by wild neighborhood cat over the weekend patient was initially evaluated in the ER on 05/21/2022 and was discharged on oral Augmentin patient presenting back to the ER the next day on 05/22/2022 concerning for worsening swelling redness to the right wrist and hand . On today's evaluation that is 05/27/2022, the patient remains to be afebrile, patient right wrist pain and swelling has slightly decreased in intensity, patient currently with no open wound or any drainage, the patient denies chest p ain shortness of breath or cough no abdominal pain no diarrhea Objective - Vital Signs Vital signs: Vital Signs Temp 97.7 F 05/27/22 09:00 Pulse 63 05/27/22 09:00 Resp 18 05/27/22 09:00 BP 140/81 05/27/22 09:00 Pulse Ox 94 L 05/27/22 09:00 FiO2 Intake & Output 05/26/22 05/27/22 05/27/22 18:59 06:59 18:59 Intake Total 700 Balance 700 Intake: Oral 700 Other: Voiding Method Toilet # Voids 1 - Exam GENERAL DESCRIPTION: Middle-age male lying in bed in no distress RESPIRATORY SYSTEM: Unlabored breathing , decreased breath sounds at bases HEART: S1 S2 regular rate and rhythm , ABDOMEN: Soft , no tenderness EXTREMITIES: Right wrist did have area of erythema slight swelling which seemed to have slightly decreased no open wound or drainage - Labs CBC & Chem 7: 05/27/22 05:56 05/27/22 05:47 Labs: Abnormal Lab Results - Last 24 Hours (Table) 05/27/22 05/27/22 Range/Units 05:47 05:56 RBC 3.91 L (4.30-5.90) m/uL Hgb 12.6 L D (13.0-17.5) gm/dL Hct 37.1 L (39.0-53.0) % Sodium 136 L (137-145) mmol/L Glucose 116 H (74-99) mg/dL Calcium 8.1 L (8.4-10.2) mg/dL C-Reactive Protein 4.2 H (<1.0) mg/dL Microbiology - Last 24 Hours (Table) 05/22/22 15:39 Blood Culture - Preliminary Blood No Growth after 96 hours Assessment and Plan (1) Cat bite Current Visit: Yes Status: Acute Code(s): W55.01XA - BITTEN BY CAT, INITIAL ENCOUNTER SNOMED Code(s): 775217716 (2) Cellulitis Current Visit: Yes Status: Acute Code(s): L03.90 - CELLULITIS, UNSPECIFIED SNOMED Code(s): 969257075 Plan: 1patient with right wrist and hand area cat bite cellulitis failing outpatient oral Augmentin therapy more likely because of the burden of disease patient x- ray did not show any foreign body and the patient is currently not febrile however did have elevated white count. 2patient still have an area of swelling and some fluctuation concerning for possible abscess, patient was evaluated by orthopedics patient did have a CT of the right wrist mention no abscess 3- patient to continue with Unasyn to 3 g every 6 hours and vancomycin for another 24 hour if the patient should continue improvement hopefully transition to oral antibiotics on discharge Time with Patient: Less than 30
[2022-05-28] MEDS: HYDROcodone/APAP 5-325MG 1 EACH TAB PO PRN (01:52)
[2022-05-28] MEDS: VANCOMYCIN 2,000 MG in SODIUM CHLORIDE 0.9% 500 ML 500 ML IVPB SCH (04:04)
[2022-05-28] MEDS: SODIUM CHLORIDE 0.9% 1,000 ML IV SCH ×2 (04:04→10:29)
--- NOTE | 2022-05-28 05:06 | PN ---
PROGRESS NOTE DATE OF SERVICE: 05/27/2022 SUBJECTIVE: This is a 56-year-old gentleman who was admitted with cat bite, had significant infection of the right wrist. No chest pain. No palpitations. The patient on antibiotics. The patient reports the swelling is improving significantly. OBJECTIVE: VITAL SIGNS: Pulse is 63, blood pressure 140/81, respirations 18. CHEST: Clear to auscultation. CARDIOVASCULAR: S1, S2. ABDOMEN: Soft. EXTREMITIES: Right wrist pain and swelling and erythema present. LABS: Reviewed. ASSESSMENT: 1. Right wrist cat bite cellulitis. No abscess per CT scan. 2. Chronic obstructive pulmonary disease. 3. Hypertension. RECOMMENDATIONS AND DISCUSSION: In this 56-year-old gentleman, I recommend to continue the current medications. Continue the antibiotics. Pain management. Closely follow with Dr. Roman and further recommendations to follow. MMSUJATAL / IJN: [id number] /
[2022-05-28] MEDS: AMPICILLIN-SULBACTAM 3 GM in SODIUM CHLORIDE 0.9% 100 ML IVPB SCH ×2 (05:55→11:10)
[2022-05-28] MEDS: SYMBICORT 160-4.5 MCG INHALER INHALATION SCH (07:15)
[2022-05-28] MEDS: lisinopriL 20 MG TAB PO SCH (08:08)
[2022-05-28] MEDS: PANTOPRAZOLE 40 MG TABLET PO SCH (08:08)
[2022-05-28] MEDS: NICOTINE 21MG/24HR PATCH TRANSDERM SCH (08:08)
[2022-05-28 09:05] VITALS: BP 172/104; PULSE 65; RESP 19; TEMP 97.5
[2022-05-28 10:46] LABS: African American GFR (CKD) >90 (>60 ml/min/1.73 sqM); Non-African American GFR(CKD) >90 (>60 ml/min/1.73 sqM)
[2022-05-28] MEDS ORDERED: VANCOMYCIN TROUGH DUE 1 EACH MISC MISCELLANE ONE (11:00)
[2022-05-28 11:24] VITALS: BMI 35.6
[2022-05-28] MEDS ORDERED: VANCOMYCIN 1,750 MG in SODIUM CHLORIDE 0.9% 500 ML 500 ML IVPB SCH (13:00)
--- NOTE | 2022-05-28 13:10 | P.PN ---
Subjective Progress Note Date: 05/28/22 Principal diagnosis: Right wrist cat bite cellulitis athannah is a 56-year-old male with a past medical he significant for COPD hypertension obesity presenting to the ER for evaluation of right hand wrist area pain and swelling redness apparently the patient was bitten by wild neighborhood cat over the weekend patient was initially evaluated in the ER on 05/21/2022 and was discharged on oral Augmentin patient presenting back to the ER the next day on 05/22/2022 concerning for worsening swelling redness to the right wrist and hand . On today's evaluation that is 05/28/2022, the patient denies any fever or chills, patient right wrist pain and swelling has significantly decreased in intensity, patient did not have any open wound or any drainage, the patient denies chest pain shortness of breath or cough no abdominal pain no diarrhea, feeling better wants to go home Objective - Vital Signs Vital signs: Vital Signs Temp 97.5 F L 05/28/22 08:32 Pulse 65 05/28/22 08:32 Resp 19 05/28/22 08:32 BP 172/104 05/28/22 08:32 Pulse Ox 95 05/28/22 08:32 FiO2 Intake & Output 05/27/22 05/28/22 05/28/22 18:59 06:59 18:59 Intake Total 2490 Balance 2490 Intake: IV 1000 Sodium Chloride 0.9% 1, 1000 000 ml @ 130 mls/hr IV . Q7H42M BRAIN Rx#:[id number] Intake, IV Titration 950 Amount Ampicillin-Sulbactam 3 gm 200 In Sodium Chloride 0.9% 100 ml @ 200 mls/hr IVPB Q6HR BRAIN Rx#:[id number] Vancomycin 2,000 mg In 750 Sodium Chloride 0.9% 500 ml 500 ml @ 167 mls/hr IVPB Q8H BRAIN Rx#: [id number] Oral 540 Other: Voiding Method Toilet # Voids 3 3 - Exam GENERAL DESCRIPTION: Middle-age male lying in bed in no distress RESPIRATORY SYSTEM: Unlabored breathing , decreased breath sounds at bases HEART: S1 S2 regular rate and rhythm , ABDOMEN: Soft , no tenderness EXTREMITIES: Right wrist did have area of erythema slight swelling which has decreased in intensity, no open wound or drainage - Labs CBC & Chem 7: 05/27/22 05:56 05/28/22 10:19 Labs: Microbiology - Last 24 Hours (Table) 05/22/22 15:39 Blood Culture - Preliminary Blood No Growth after 120 hours Assessment and Plan (1) Cat bite Status: Acute Code(s): W55.01XA - BITTEN BY CAT, INITIAL ENCOUNTER SNOMED Code(s): 750191432 (2) Cellulitis Status: Acute Code(s): L03.90 - CELLULITIS, UNSPECIFIED SNOMED Code(s): 804016583 Plan: 1patient with right wrist and hand area cat bite cellulitis failing outpatient oral Augmentin therapy more likely because of the burden of disease patient x- ray did not show any foreign body and the patient is currently not febrile however did have elevated white count. 2patient still have an area of swelling and some fluctuation concerning for possible abscess, patient was evaluated by orthopedics patient did have a CT of the right wrist mention no abscess 3- patient seemed to have shown clinical improvement with Unasyn and vancomycin and we will finish therapy with oral Augmentin and doxycycline cannot use Bactrim DS as the patient is on lisinopril and close outpatient follow-up Time with Patient: Less than 30
--- NOTE | 2022-05-29 12:07 | DS ---
DISCHARGE SUMMARY FINAL DIAGNOSES: 1. Right wrist cat bite cellulitis and abscess per CAT scan. 2. Chronic obstructive pulmonary disease. 3. Hypertension. DISCHARGE DISPOSITION: The patient will be discharged in stable condition and guarded prognosis. Infectious Disease discharged the patient. HISTORY OF PRESENT ILLNESS: A 56-year-old gentleman admitted with cat bite infection, cellulitis. CT scan did not show any abscess. Treated with antibiotics, improved significantly. Dr. Roman cleared the patient for discharge. PHYSICAL EXAMINATION: VITAL SIGNS: Stable. CARDIOVASCULAR: S1, S2. ABDOMEN: Soft. EXTREMITIES: Right wrist minimal redness present. LABS: Reviewed. DISCHARGE ADVICE AND MEDICATIONS: Continue the home medications, 1. Augmentin 875 mg p.o. b.i.d. for 10 days. 2. Doxycycline 100 mg p.o. b.i.d. for 10 days. Follow up with Dr. Roman as recommended, follow up with Dr. Zimmer as recommended. MMSUJATAL / ANASTACION: [id number] /
== END 2022-05-28 12:32 | disposition home or self-care (01) | DRG 603 ==
LOC: EC 13:59 → 5NMEDONC 22:11
PROVIDERS: ADMIT Family Medicine; ATTEND Family Medicine
DX: L03.113 Cellulitis of right upper limb (principal); W55.01XA Bitten by cat, initial encounter; F17.210 Nicotine dependence, cigarettes, uncomplicated; I10 Essential (primary) hypertension; E66.9 Obesity, unspecified; G89.29 Other chronic pain; J44.9 Chronic obstructive pulmonary disease, unspecified; S61.551A Open bite of right wrist, initial encounter; Z68.35 Body mass index [BMI] 35.0-35.9, adult; Z79.899 Other long term (current) drug therapy
CPT/HCPCS: 36415; 80048; 80053; 80202; 82565; 83605; 85025; 85652; 86140; 87040; 90715; 94640; 96365; 96375; 99285

== ENCOUNTER → 2022-05-31 | Outpatient (CLI) | payer OTHER ==
[2022-05-31 18:02] LABS: HCT 40.5 % (39.6-50.0); HGB 13.9 g/dL (13.0-17.0); MCH 31.9 pg (27.0-32.0); MCHC 34.3 g/dL (32.0-37.0); MCV 92.9 fL (80.0-97.0); Mean Platelet Volume 9.9 fL (9.5-12.2); NRBC Per 100 WBC 0 /100 WBCS (0.0-0.0); Platelet Count 424 X 10*3/uL (140-440); RBC 4.36 X 10*6/uL (4.40-5.60); RDW 12.3 % (11.5-14.5); WBC 12.43 X 10*3/uL (4.50-10.00)
== END | disposition home or self-care (01) ==
LOC: LABWHC1 13:17
PROVIDERS: ATTEND Hospitalist
DX: D64.9 Anemia, unspecified (principal)
CPT/HCPCS: 36415; 85027

== ENCOUNTER → 2022-10-19 | Outpatient (CLI) | payer OTHER ==
--- NOTE | 2022-10-19 09:27 | CTL ---
EXAMINATION TYPE: CT Low Dose Lung DATE OF EXAM ORDERED: 10/19/2022 HISTORY: Z87.891 PERSONAL HISTORY OF NICOTINE DEPENDENCE. Lung cancer screening CT DLP: [address] CTDI: 2.75 mGy Automated exposure control for dose reduction was used. SCREENING VISIT: First screening visit COMPARISON: Chest radiograph 09/14/2021 TECHNIQUE: Low dose computed tomography scan was performed through the chest at 1 mm thick sections a nd reconstructed images in multiple planes at 1 mm and [address] DIAGNOSTIC QUALITY: Satisfactory FINDINGS: LUNG NODULES: No clinically significant pulmonary nodules. LUNGS: COPD: Severity: None Fibrosis: Severity: None Lymph nodes: None Other findings: None RIGHT PLEURAL SPACE: Effusion: None Calcification: None Thickening: None Pneumothorax: None LEFT PLEURAL SPACE: Effusion: None Calcification: None Thickening: None Pneumothorax: None HEART: Heart Size: Normal Coronary Calcification: Minimal Pericardial Effusion: None OTHER FINDINGS: Upper abdomen: None Bony thorax: No acute osseous abnormality. Sclerotic focus within the posterior aspect of the T4 vert ebral body likely representing a benign bone island. Supraclavicular region: None Other: None IMPRESSION: No clinically significant pulmonary nodules. CT LUNG RAD AND CT CHEST RECOMMENDATION: Lung-Rad 1 Negative: Continue annual screening with LDCT in 12 months. S Modifier (other clinically significant findings): None
== END | disposition home or self-care (01) ==
LOC: RADCTMAIN 07:59
PROVIDERS: ATTEND Family Medicine
DX: Z12.2 Encounter for screening for malignant neoplasm of respiratory organs (principal); Z87.891 Personal history of nicotine dependence
CPT/HCPCS: 71271

== ENCOUNTER → 2023-08-03 | Outpatient (CLI) | payer OTHER ==
--- NOTE | 2023-08-03 12:27 | US ---
EXAMINATION TYPE: US arterial LE single level DATE OF EXAM: 08/03/2023 9:53 AM CLINICAL INDICATION: Male, 58 years old with history of R09.89 OTH SYMPTOMS CIRC AND RESP SYSTEMS; We ak pulse; patient states he had an episode of left calf and foot discoloration that lasted 20 minutes . History of: Smoker: Current Smoker Hypertension: Yes Diabetic: Yes - newly diagnosed Hyperlipidemia: Yes TIA/CVA: No Previous Vascular Surgery: No CAD: No DE: No Vascular Ulcers: No Claudication: No Gangrene: No Right Brachial Pressure: 122 Left Brachial Pressure: 120 Ankle-Brachial Indices: Right: 1.28 Left: 1.29 Doppler Waveforms: Right: PHYSICAL DIRECTOR: Triphasic PSV: 129.0 cm/s DFA: Triphasic PSV: 91.4 cm/s SFA: Triphasic PSV: 115.0 cm/s Popliteal Artery: Triphasic PSV: 52.2 cm/s POWER SYSTEM OPERATOR: Triphasic PSV: 58.7 cm/s Peroneal Artery: Triphasic PSV: 50.7 cm/s DPA: Triphasic PSV: 49.8 cm/s Left: PHYSICAL DIRECTOR: Triphasic PSV: 107.0 cm/s DFA: Triphasic PSV: 77.7 cm/s SFA: Triphasic PSV: 142.0 cm/s Popliteal Artery: Triphasic PSV: 53.6 cm/s POWER SYSTEM OPERATOR: Triphasic PSV: 58.3 cm/s Peroneal Artery: Triphasic PSV: 31.1 cm/s DPA: Triphasic PSV: 64.1 cm/s Duplex Ratios: Right: 1.4 Left: 1.29 Mild plaque formation noted throughout the bilateral lower extremities. Triphasic waveforms noted thr oughout the bilateral lower extremity arteries. IMPRESSION: No evidence for significant stenosis.
== END | disposition home or self-care (01) ==
LOC: RADUSWWP 08:49
PROVIDERS: ATTEND Family Medicine
DX: R09.89 Other specified symptoms and signs involving the circulatory and respiratory systems (principal); E78.5 Hyperlipidemia, unspecified; E11.9 Type 2 diabetes mellitus without complications; I10 Essential (primary) hypertension
CPT/HCPCS: 93922

== ENCOUNTER → 2024-01-02 | Outpatient (CLI) | payer OTHER ==
--- NOTE | 2024-01-02 11:44 | XR ---
EXAMINATION TYPE: XR lumbar spine 2 or 3V DATE OF EXAM: 01/02/2024 CLINICAL HISTORY: pain TECHNIQUE: Three views of the lumbar spine are submitted. COMPARISON: None. FINDINGS: There are 5 lumbar type vertebral bodies identified. The lumbar spine shows satisfactory alignment w ithout evidence of acute fracture or dislocation. Vertebral body heights are within normal limits. Mild multilevel degenerative disc space narrowing and spondylosis. Mild lower lumbar facet joint arth ropathy. The overlying soft tissue appears unremarkable. IMPRESSION: No acute fracture or dislocation is seen in the lumbar spine. ICD 10 NO FRACTURE, INITIAL EVALUATION
== END | disposition home or self-care (01) ==
LOC: RADXRMAIN 11:16
PROVIDERS: ATTEND Family Medicine
DX: M54.50 Low back pain, unspecified (principal)
CPT/HCPCS: 72100

== ENCOUNTER → 2024-03-12 | Outpatient (CLI) | payer OTHER ==
--- NOTE | 2024-03-12 11:00 | XR ---
EXAMINATION TYPE: XR knee limited LT DATE OF EXAM: 03/12/2024 CLINICAL HISTORY: pain TECHNIQUE: Three views of the left knee are obtained. COMPARISON: None. FINDINGS: There is no acute fracture/dislocation. The tri-compartment joint spaces appear within no rmal limits. The overlying soft tissue appears unremarkable. IMPRESSION: There is no acute fracture or dislocation ICD 10 NO FRACTURE, INITIAL EVALUATION [facility], , 03/12/2024 10:58 AM
== END | disposition home or self-care (01) ==
LOC: RADXRMAIN 10:15
PROVIDERS: ATTEND Family Medicine
DX: M25.562 Pain in left knee (principal)